=== PATIENT | female | born 1990 | race Caucasian/White ===

== ENCOUNTER 2023-04-06 10:04 | Outpatient (AMB) | payer MEDICAID, SELFPAY ==
--- NOTE | 2023-04-06 10:19 | MHC.OFFVIS ---
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 Pt states the left knee pain started about 3 years ago when she fell over a babygate and landed on her knee. Pt states she has had about 7 cortisone injections and gel injections all in 2021. Pt denies any previous surgeries on her knee. Pt states she did physical therapy for 12 weeks over the last 6 months which aggravated her pain. She has taken Tylenol and anti-inflammatory medicines which gave her minimal relief. Patient asked whether not she can have any medicine for her pain. Allergies No Known Allergies Allergy (Unverified 04/06/23 10:19) Medication List - Last Reconciled 04/06/23 by Tyrell Tesfaye MD clonazepam 1 mg PO BEDTIME PRN diclofenac sodium 1% 2 grams topical QID estradiol 1 mg PO DAILY hydroxyzine HCl 10 mg PO TID lacosamide (Vimpat) 200 mg PO BID levetiracetam (Keppra) 1,000 mg PO TID ropinirole 0.25 mg PO BEDTIME PFSH Surgical History History of appendectomy H/O: hysterectomy Social History Household Members: Spouse and Children Housing: Apartment Alcohol intake: never Patient Tobacco Use Status: Current everyday Tobacco user Cigarette Packs Per Day: 1 Use of substances other than those prescribed or required for medical reasons: Yes Substance Use Type: Marijuana Physical Exam Const Other: Well-nourished well-developed very friendly female awake alert and oriented x3 in no acute distress Extrem Other: Bilateral lower extremity examination shows good capillary refill, no skin lesions noted, normal sensation light touch Left knee examination shows a minimal effusion, minimal crepitus with range of motion, tenderness along her medial joint line, positive Sandra's test, no instability Results Reviewed Results Reviewed: X-rays of the patient's left knee show minimal joint space narrowing, no acute bony abnormalities Assessment & Plan Assessment & Plan (1) Left knee pain: Code(s): M25.562 - Pain in left knee Plan Ms. Shah presents with left knee pain and mechanical symptoms most likely due to a tear of her medial meniscus. Thus, I will send the patient for an MRI of her left knee for further evaluation. I will see her back once the MRI is completed to discuss the findings and treatment options. Patient did request pain medicine. I told her that I do not prescribe medicine for pain except for post surgery. The patient will follow-up as instructed. I spent 22 minutes in reviewing the patient's records and imaging studies, seeing the patient and documenting in the medical record. Orders: Orders XR knee LT 3V Today M25.562 - Pain in left knee MR knee LT wo con Today M25.562 - Pain in left knee Coding Level of Care Code New Pt Level 2 (01329) Diagnoses Left knee pain M25.562
== END 2023-04-06 10:48 | disposition home or self-care (01) ==
PROVIDERS: Visit Provider Orthopaedic Surgery
DX: M25.562 Pain in left knee (principal)
CPT/HCPCS: 99202

== ENCOUNTER 2023-04-06 11:54 | Outpatient (REF) | payer MEDICAID, SELFPAY ==
--- NOTE | ~2023-04-06 | XR_ITS ---
EXAMINATION: XR KNEE, LEFT CLINICAL INFORMATION: Pain in left knee COMPARISON: None available. TECHNIQUE: Four views of the left knee. FINDINGS: No fracture or joint effusion. Lateral patellar tilt is noted. Joint spaces are maintained. No abnormal soft tissue calcification. XR/XR knee LT 3V IMPRESSION: Lateral patellar tilt.
== END 2023-04-06 11:55 | disposition home or self-care (01) ==
LOC: HO.HOSX 11:54
PROVIDERS: Visit Provider Orthopaedic Surgery
DX: M25.562 Pain in left knee (principal)
CPT/HCPCS: 73562; 99202

== ENCOUNTER 2023-05-02 12:54 | Outpatient (AMB) | payer MEDICAID, SELFPAY ==
--- NOTE | 2023-05-02 12:58 | MHC.OFFVIS ---
Intake Intake Visit Reasons: OV- MRI Review Lt Knee pain Intake Note: Pt presents to the office today for a patient visit for left knee pain. Pt states the left knee pain started about 3 years ago when she fell over a babygate and landed on her knee. Pt states she has had about 7 cortisone injections and gel injections all in 2021. Pt denies any previous surgeries on her knee. Pt states she did physical therapy for 12 weeks over the last 6 months which aggravated her pain. She has taken Tylenol and anti-inflammatory medicines which gave her minimal relief. Patient asked whether not she can have any medicine for her pain. The patient thinks that she may have aggravated her knee while caring for her 4-year-old autistic son. She has not tried wearing a knee brace. She states that her knee will give out several times per day. She was seen at [facility] in the past. Allergies No Known Allergies Allergy (Unverified 04/06/23 10:19) Medication List - Last Reconciled 05/02/23 by Tyrell Tesfaye MD clonazepam 1 mg PO BEDTIME PRN diclofenac sodium 1% 2 grams topical QID estradiol 1 mg PO DAILY hydroxyzine HCl 10 mg PO TID lacosamide (Vimpat) 200 mg PO BID levetiracetam (Keppra) 1,000 mg PO TID ropinirole 0.25 mg PO BEDTIME PFSH Surgical History History of appendectomy H/O: hysterectomy Social History Household Members: Spouse and Children Housing: Apartment Alcohol intake: never Patient Tobacco Use Status: Current everyday Tobacco user Cigarette Packs Per Day: 1 Substance Use Type: Marijuana Physical Exam Extrem Other: Bilateral lower extremity examination shows good capillary refill, no skin lesions noted, normal sensation light touch Left knee examination shows a minimal effusion, no crepitus with range of motion, pain with range of motion, negative Arelis test, no instability Results Reviewed Results Reviewed: MRI which the patient brings with her on a disc from [facility] shows minimal degenerative changes, no meniscus tearing, no ligamentous injury Assessment & Plan Assessment & Plan (1) Left knee pain: Code(s): M25.562 - Pain in left knee Plan Ms. Shah presents with left knee pain and mechanical symptoms of unclear etiology. I do not see any significant abnormality on her MRI. Once again the patient's questions what type of pain medicine I can give her for her pain. I have referred her back to her primary care doctor office or a pain management clinic. Because of the patient's symptoms of instability I did have her fitted with a knee brace. I do find that the knee brace is a medical necessity to help prevent future falls. The patient has been seen at [facility] in the past. She does not wish to go back there. I did also recommend that the patient seek a 3rd opinion from the orthopedic department at [facility] because I do not have an explanation for her pain or mechanical symptoms. Patient will follow up with me on an as-needed basis. I spent 22 minutes in reviewing the patient's records and imaging studies, seeing the patient and documenting in the medical record. Coding Level of Care Code Est Pt Level 2 (94876) Diagnoses Left knee pain M25.562
== END 2023-05-02 13:12 | disposition home or self-care (01) ==
PROVIDERS: Visit Provider Orthopaedic Surgery
DX: M25.562 Pain in left knee (principal)
CPT/HCPCS: 99212

== ENCOUNTER → 2023-05-02 12:54 | Outpatient (BNVA) | payer MEDICAID, SELFPAY | PROVIDERS: Visit Provider Orthopaedic Surgery | DX: M25.562 Pain in left knee (principal) | CPT/HCPCS: 99212 ==

== ENCOUNTER 2025-05-26 08:11 | Emergency (ER) | payer MEDICAID, SELFPAY ==
--- NOTE | ~2025-05-26 | XR_ITS ---
EXAMINATION: XR CHEST CLINICAL INFORMATION: cough sob COMPARISON: None available. TECHNIQUE: 2 views of the chest were obtained. FINDINGS: Well inflated lungs. Question retrosternal bronchial wall thickening on the lateral view. No consolidation or pulmonary edema. No pleural effusion or pneumothorax. Cardiac and mediastinal contours are normal. Bony structures are normal. XR/XR chest 2V IMPRESSION: Well inflated lungs. Question retrosternal bronchial wall thickening. Electronically signed by: Carmenza Carvajal MD 05/26/2025 09:06 AM [facility]
[2025-05-26 08:21] VITALS: BP 134/88; PULSE 109; RESP 18; TEMP 36.8; O2SAT 97; BMI 13.5
--- NOTE | 2025-05-26 08:26 | ED_ITS ---
HPI - Nausea/Vomiting/Diarrhea General Chief complaint: General Medical Stated complaint: Stomach Pain Etc Time Seen by Provider: 05/26/25 08:24 Source: patient Mode of arrival: ambulatory Limitations: no limitations History of Present Illness ED Provider: Rosalie Singh PA-C HPI Narrative: Patria is a 5'2 female presenting with one week of significant gastrointestinal and respiratory symptoms. She began feeling ill on 11/13 and was seen at urgent care on 11/18 where she was diagnosed with influenza and given ondansetron. Over the past week she notes a 20 lb unintentional weight loss, severe stabbing abdominal pain, persistent watery diarrhea with metallic odor and flaky brown-red appearance (denies bright red blood, maroon stool, or melena), and prior episodes of vomiting (last ~5 days ago). She has been unable to tolerate oral intake; last attempted meal was 3 days ago and was not retained. Additional symptoms include dizziness, brain fog, malaise, shortness of breath with congestion and productive cough yielding brown-green sputum, and diaphoresis. She denies recent marijuana use, stating she has not smoked since the onset of dyspnea. No recent fevers were measured at home. Surgical history notable for appendectomy and total hysterectomy with bilateral oophorectomy (no possibility of ). She reports pain?not nausea?is the limiting symptom and therefore has not taken Zofran recently for this episode; she has Zofran at home but has not used it recently. Current medications include unspecified seizure medications and ondansetron PRN. Allergic reaction to sulfa drugs (diffuse rash). Declines Tamiflu and other drug use. Medications: - Seizure medications (unspecified, home regimen) - Ondansetron 4 mg PO PRN nausea/vomiting (has at home, not taken recently for current episode) Review of Systems: - Constitutional: weight loss (20 lb in 1 wk), malaise, diaphoresis. - HEENT: dizziness, ?head is busy and foggy.? - Respiratory: shortness of breath, congestion, productive cough with brown- green sputum. - Gastrointestinal: severe stabbing abdominal pain (pain score 6), nausea, vomiting (last 5 days ago), watery diarrhea with metallic odor and flaky brown- red appearance; unable to tolerate PO intake; denies hematochezia or melena. - Genitourinary: s/p total hysterectomy with BSO; no possibility of ; reports drinking and peeing. - Neurologic: brain fog, difficulty concentrating. Related Data Home Medications ?Medication ?Instructions ?Recorded ?Confirmed clonazepam 1 mg tablet 1 mg PO BEDTIME PRN 04/06/23 05/02/23 diclofenac sodium 1 % topical gel 2 g topical QID 02/1805/02/23 estradiol 1 mg tablet 1 mg PO DAILY 04/06/2305/02 hydroxyzine HCl 10 mg tablet 10 mg PO TID 04/06/2310/18 lacosamide 200 mg tablet (Vimpat) 200 mg PO BID 05/02/23 levetiracetam 1,000 mg tablet 1,000 mg PO TID 04/06/23 05/02/23 (Keppra) ropinirole 0.25 mg tablet 0.25 mg PO BEDTIME 04/06/23 05/02/23 Allergies Allergy/AdvReac Type Severity Reaction Status Date / Time Sulfa (Sulfonamide Allergy Hives Verified 05/26/25 08:26 Antibiotics) Review of Systems 2 Review of Systems: Yes all other systems are reviewed and are negative PMFSH Past Medical History Attestation statement: The following information was validated with the patient. Source: old records reviewed and nursing notes reviewed Surgical History History of appendectomy H/O: hysterectomy Social History Social History Household Members: Spouse and Children Housing: Apartment Alcohol intake: never Patient Tobacco Use Status: Current everyday Tobacco user Cigarette Packs Per Day: 1 Substance Use Type: Marijuana Advance Directives: No Advance Directives Information Provided: No Do you have a plan to hurt others: No Plan Physical Exam 2 Exam: Exam: General: Appears uncomfortable but in no acute distress, appears well-nourished body habitus is underweight, appears stated age. No septic or ill-appearing. Vitals were reviewed as normal, and PMH/Social and Surgical hx was reviewed, including allergies and current medications. Head: Normocephalic, no obvious trauma or skin lesions noted. Eyes: EOMI, no pallor ENMT: dry oral mucosa, no tonsillar edema or erythema Neck: trachea midline Cardiovascular: peripheral perfusion normal, Regular heart rate, mild tachycardia Respiratory: no respiratory distress, lungs CTAB Abdomen: non-distended, epigastric TTP without guarding, seen dry heaving Extremities: warm and moving without difficulty Psych: Cooperative but irritated with flat affect Neuro: Alert and oriented. Vital Signs: Vital Signs: Last Vital Signs Temp 98.2 F 05/26/25 08:21 Pulse 109 H 05/26/25 08:21 Resp 18 05/26/25 08:21 BP 134/88 05/26/25 08:21 Pulse Ox 97 05/26/25 08:21 O2 Del Method Room Air 05/26/25 08:21 BMI result Body Mass Index 13.5 Medical Decision Making Medical Decision Making MDM Narrative: Shakira presented with one week of severe gastrointestinal and respiratory symptoms following a recent influenza diagnosis, including significant weight loss, dehydration, and cachexia. Clinical assessment and physical exam confirmed volume depletion and cachexia. Laboratory studies and chest imaging were reviewed and showed no significant metabolic derangements or acute pulmonary findings. The differential diagnosis included viral gastroenteritis, medication effects, and other infectious or inflammatory etiologies. After discussing the results and management options, the patient declined IV fluids and was advised to pursue aggressive oral hydration at home, with close follow-up and return precautions should symptoms worsen or oral intake remain inadequate. Patient with one-week history of severe GI symptoms (vomiting, diarrhea, abdominal pain, weight loss) and respiratory complaints after recent influenza diagnosis; currently dehydrated and cachectic. Labs reviewed (no significant derangements) and chest imaging completed. Patient initially agreed to IV fluids but felt improved and elected to leave prior to infusion after extensive discussion of results, oral hydration, and return precautions. Problem #1: Dehydration / Cachexia Assessment: Clinical signs of volume depletion (dry mucosa, weight loss, minimal PO intake). Plan: - Initial plan for 1 L IV normal saline; patient elected to defer and was advised to aggressively hydrate orally at home. Citation: Guidelines recommend initial IV fluid resuscitation with isotonic crystalloids (preferably lactated Ringer?s or normal saline) in adults with moderate?severe dehydration from acute GI losses. - Discussed signs of worsening dehydration and need for return if unable to maintain intake. - Follow-up PRN if symptoms worsen or inability to maintain hydration. Problem #2: Severe GI symptoms (abdominal pain, vomiting, diarrhea, weight loss) Assessment: One-week duration following presumed influenza; differential includes viral gastroenteritis, medication effect, other infectious or inflammatory etiologies. Plan: - Completed labs (CBC, CMP, lipase, CPK, CRP, ESR, magnesium) ? reviewed with patient. - Return if abdominal pain worsens, persistent vomiting resumes, or bloody stools occur. - Consider abdominal CT if no improvement on follow-up. Citation: CT abdomen/pelvis is warranted in adults with acute severe diarrhea and weight loss when red-flag criteria are present, including severe pain, abnormal labs, or failure to improve; conservative management is appropriate only if these are absent. Problem #3: Respiratory symptoms (SOB, productive cough post-influenza) Assessment: Likely post-viral; chest X-ray without acute process. Plan: - Encouraged supportive care (hydration, rest). Citation: Routine chest radiography is not indicated in immunocompetent adults with normal vital signs and lung exam, as per ACR and CHEST guidelines; supportive care is recommended unless clinical findings change. Citation: Bronchial wall thickening on chest X-ray without consolidation supports a viral etiology; guidelines recommend withholding antibiotics and providing supportive care for acute bronchitis in immunocompetent adults. - Return if dyspnea worsens, fever develops, or bloody sputum occurs. Disposition: Patient discussed oral hydration strategies and comprehensive return precautions; declined IV fluids after feeling improved and left clinic in stable condition accompanied by significant other. No work note requested. [facility] pharmacy confirmed. Follow-Up: Patient advised to return or seek higher level of care for any worsening symptoms, inability to hydrate, new fever, or concerns per provided precautions. Differential Diagnosis Differential Diagnoses: The differential diagnosis associated with the presentation includes see [facility] Admission/Observation Consideration of admission/observation: Escalation of care including admission/observation considered Lab Data [facility] Lab Attestation statement: I reviewed the patient's lab results. - CBC: WNL, no anemia, no leukocytosis. - CMP: No electrolyte imbalance or metabolic dysfunction; AST 42 (slightly ?), ALT normal, alk phos 123. - CK 177 (not supportive of rhabdomyolysis). - CRP, ESR, lipase, magnesium within normal limits. 05/26/25 09:05 05/26/25 09:05 Labs: Lab Results 05/26/25 Range/Units 09:05 WBC 7.5 (4.8-10.8) X10*3/uL RBC 4.76 (4.20-5.50) X10*6/uL Hgb 14.7 (12.0-16.0) g/dl Hct 42.2 (37.0-47.0) % MCV 88.7 (80.0-98.0) fL MCH 30.9 (27.0-33.0) pg MCHC 34.8 (31.0-35.0) g/dl RDW 13.0 (11.0-16.0) % Plt Count 342 (160-400) X10*3/uL MPV 8.7 L (9.4-12.3) fL Immature Gran % (Auto) 0.4 (0.0-0.4) % Neut % (Auto) 64.2 (45-73) % Lymph % (Auto) 23.8 (20-40) % [place] % (Auto) 11.2 H (2-11) % Eos % (Auto) 0.3 (0-4) % Baso % (Auto) 0.1 (0-2) % Lymph # (Auto) 1.8 (1.2-4.9) X10*3/uL [place] # (Auto) 0.8 (0.1-1.2) X10*3/uL Eos # (Auto) 0.0 (0.0-0.4) X10*3/uL Baso # (Auto) 0.0 (0.0-0.2) X10*3/uL Abs Immat Gran (auto) 0.03 (0.00-0.03) X10*3/uL Absolute Neuts (auto) 4.8 (2.0-8.3) x10*3/uL Absolute Nucleated RBC 0.000 (0.0-0.012) X10*3/uL Nucleated RBC % (auto) 0.0 (0.0-0.2) /100WBC ESR 33 H (1-20) MM/HR Sodium 138 (135-145) mmol/L Potassium 3.5 (3.3-5.1) mmol/L Chloride 103 (96-108) mmol/L Carbon Dioxide 25 (22-29) mmol/L Anion Gap 14 (12-20) BUN 5 L (9-16) mg/dL Creatinine 0.56 (0.5-1.4) mg/dL Estim Creat Clear Calc 74.6 Estimated GFR > 60 Random Glucose 112 (60-115) mg/dL Calcium 9.5 (8.4-10.2) mg/dL Magnesium 2.2 (1.6-2.6) mg/dL Total Bilirubin 0.6 (0.0-1.0) mg/dL AST 42 H (5-31) U/L ALT 31 (0-31) U/L Alkaline Phosphatase 123 H (39-117) U/L Total Creatine Kinase 177 H (26-140) U/L C-React Prot High Sens >20.0 H mg/L Total Protein 7.8 (6.5-8.0) g/dL Albumin 4.6 (3.5-5.0) g/dL Lipase 16 (8-78) U/L Independent Interpretation I performed an independent interpretation of an: Plain X-Ray Interpretation: no PNA Radiology Impression Discussion of test interpretation with radiology: I have reviewed the radiologist's reading. Tests considered The following testing was considered but not selected: would have considered CT abd/pelvis if patient was willing to stay in ED Prescription Management I considered prescription management with: Other pt declined IVFs and requested to leave prior to going to room Chronic Conditions Patient?s care impacted by: Other Social Determinants Patient?s care significantly limited by Social Determinants of Health including: Problems related to primary support group and Other Social Determinant of Health Discharge Plan Discharge Clinical Impression: Gastroenteritis, Acute dehydration Patient Disposition: Home, Self-Care Instructions: Dehydration (DC), Gastroenteritis (DC) Additional Instructions: If you start to have moderate to severe signs of dehydration you need to go to the ED for IV fluid replacement. Signs include: decreased to no urinary output, confusion, moderate to severe muscle cramping in extremities, headaches, and lethargy. Drink plenty of fluids. Choose fluids containing water, salt, and sugar, such as diluted fruit juice, soft drinks and broth. You may try mixing the following for oral rehydration: Add 0.5 teaspoon of salt, 0.5 teaspoon of baking soda, and 4 tablespoons of sugar to 1 liter of water. The electrolyte concentrations of fluids used for sweat replacement (eg, Gatorade) are not equivalent. If you have watery diarrhea, eat starchy foods, such as potatoes, noodles, rice, wheat, and oatmeal. Other good choices are saltine crackers, bananas, soup, and boiled vegetables. If you aren't hungry, you may need a liquid diet at first. After your diarrhea clears up, you may have temporary difficulty with digesting milk and milk-based products. Prescriptions: No Action levetiracetam [Keppra] 1,000 mg tablet 1,000 mg PO TID lacosamide [Vimpat] 200 mg tablet 200 mg PO BID clonazepam 1 mg tablet 1 mg PO BEDTIME PRN estradiol 1 mg tablet 1 mg PO DAILY ropinirole 0.25 mg tablet 0.25 mg PO BEDTIME hydroxyzine HCl 10 mg tablet 10 mg PO TID diclofenac sodium 1 % gel 2 g topical QID Discharge Date/Time: 05/26/25 10:48 Print Language: Gibralt[place]
[2025-05-26 09:18] LABS: MANUAL DIFF FLAG NO
[2025-05-26 09:20] LABS: Hematocrit 42.2 % (37.0-47.0); Hemoglobin 14.7 g/dl (12.0-16.0); Imm Gran Abs Auto 0.03 X10*3/uL (0.00-0.03); Imm Gran Pct Auto 0.4 % (0.0-0.4); Lymphocytes Absolute Auto 1.8 X10*3/uL (1.2-4.9); Mean Corpuscular HGB Conc 34.8 g/dl (31.0-35.0); Mean Corpuscular Hemoglobin 30.9 pg (27.0-33.0); Mean Corpuscular Volume 88.7 fL (80.0-98.0); NRBC Abs Auto 0.000 X10*3/uL (0.0-0.012); NRBC Pct Auto 0.0 /100WBC (0.0-0.2); Platelet Count 342 X10*3/uL (160-400); Red Blood Count 4.76 X10*6/uL (4.20-5.50); White Blood Count 7.5 X10*3/uL (4.8-10.8)
[2025-05-26 09:47] LABS: Alanine Aminotransferase 31 U/L (0-31); Albumin Level 4.6 g/dL (3.5-5.0); Alkaline Phosphatase 123 U/L (39-117); Anion Gap 14 (12-20); Aspartate Amino Transferase 42 U/L (5-31); Blood Urea Nitrogen 5 mg/dL (9-16); Calcium 9.5 mg/dL (8.4-10.2); Carbon Dioxide 25 mmol/L (22-29); Chloride 103 mmol/L (96-108); Creatinine Clr Calc Pharmacy 74.6; Estimated Glomerular Filt Rate > 60; Lipase 16 U/L (8-78); Magnesium 2.2 mg/dL (1.6-2.6); Potassium 3.5 mmol/L (3.3-5.1); Sodium 138 mmol/L (135-145); Total Protein 7.8 g/dL (6.5-8.0)
--- NOTE | 2025-05-26 10:46 | PC.NURSE ---
Patient had left hospital prior to being seen by this nurse. Provider had already spoken to the patient prior to her leaving [facility] , and provider also called the phone to give her discharge instructions. Discharged home in the computer. IVF not given due to patient leaving
--- OUTSIDE RECORDS SUMMARY | 2025-05-26 11:42 | XMS_ITS | Encounter Summary ---
Author Organization [facility] Address [address] [facility] [address] [place] [address] Phone Care Team Providers Care Hereditary Cancer Program Coordinator Name Role Phone Alessio Jeffery MD Unavailable Yoanna Varela MD Unavailable [phone] Nahun Oliver MD Unavailable [phone] Yumiko Shearer MD Unavailable [phone] Claudia Werner MD Primary Care Provider [phone] Hamida Vickers [facility] Primary Care Prov ider Reason for Referral * MRI/CAT Scan - Closed Specialty Diagnoses / Procedures Referred By Contac t Referred To Contact Radiology Diagnoses Chronic pain of left knee Procedures MRI Knee (Left) Monica Elizabeth PA-C Phone: tel: fax: [email or web address] Referral ID Status Reason Start Date Expiration Date Visits Re quested Visits Authorized [id number] Closed 04/07/2023 1 1 Encounter Details Date Type Department Care Team (Latest Contact Info) Description 04/07/2023 Transcribe Orders Virtual Department [address] [place] [address] Monica Elizabeth PA-C [address] [place] [phone] [email or web address] Chronic pain of left knee (Primary Dx) Social History Tobacco Use Types Packs/Day Years Used Date Smoking Tobacco: Every Day Cigarettes 0.5 5 Smokeless Tobacco: Never Comments:1/2 ppd Alcohol Use Standard Drinks/Week Comments No 0 (1 standard drink = 0.6 oz pur e alcohol) sober 2014 Education Answer Date Recorded Are you interested in more education? Not on puneet e 09/23/2022 Are you concerned about learning? Not on file 09/23/2022 No 09/23/2022 No 09/23/2022 Digital Access Answer Date Recorded No 10/18/2022 No 10/18/2022 Reliable internet access at home? Not on file 10/18/2022 Device with a working camera? Not on file Intimate Partner Violence Answer Date R ecorded Are you denied basic needs s uch as food, clothing, or medical care? No 10/04/2022 In the past 12 months have y ou been in a relationship with a person who hurts, threatens, or tries to control you? No 10/04/2022 Are you denied basic needs s uch as food, clothing, or medical care? No 10/04/2022 In the past 12 months have y ou been in a relationship with a person who hurts, threatens, or tries to control you? 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 Not on file Not on file Not on file documented as of this encounter Plan of Treatment Upcoming Encounters Date Type Department Care Team (Late st Contact Info) Description 06/27/2025 10:00 AM EST Office Visit [facility] Obstetrics and Gynecology Clinic [place] [address] Yumiko Shearer MD [address] [place] [address], [address] [place] [address] documented as of this encounter Results * MRI KNEE WITHOUT CONTRAST (LEFT) (04/16/2023 12:55 PM EST) Anatomical Region Laterality Modality Knee Left Magnetic Resonan ce 04/19/2023 5:16 PM EST Impressions 04/20/2023 12:55 AM EST No meniscal tear, significant cartilage defects, or ligamentous injury. Narrative 04/20/2023 12:55 AM EST MRI KNEE WITHOUT CONTRAST (LEFT) REQUESTED INDICATION: Outside Radiology Order; CHRONIC LEFT KNEE PAIN TECHNIQUE: MRI KNEE WITHOUT CONTRAST (LEFT) COMPARISON: None FINDINGS: MEDIAL COMPARTMENT: No meniscal tear, cartilage defect, or subchondral bone marrow edema. LATERAL COMPARTMENT: No meniscal tear, cartilage defect, or subchondral bone marrow edema. PATELLOFEMORAL COMPARTMENT: No cartilage defect or subchondral bone marrow edema. TENDONS: Quadriceps, patellar and popliteus tendons intact. LIGAMENTS: Intact cruciate and collateral ligaments. BONE: No fracture, osteonecrosis, or focal lesion. JOINT: No joint effusion, synovitis, or Dockery's cyst. Procedure Note Skye Frazier MD - 04/20/2023 MRI KNEE WITHOUT CONTRAST (LEFT) REQUESTED INDICATION: Outside Radiology Order; CHRONIC LEFT KNEE PAIN TECHNIQUE: MRI KNEE WITHOUT CONTRAST (LEFT) COMPARISON: None FINDINGS: MEDIAL COMPARTMENT: No meniscal tear, cartilage defect, or subchondralbone marrow edema. LATERAL COMPARTMENT: No meniscal tear, cartilage defect, or subchondralbone marrow edema. PATELLOFEMORAL COMPARTMENT: No cartilage defect or subchondral bone marrowedema. TENDONS: Quadriceps, patellar and popliteus tendons intact. LIGAMENTS: Intact cruciate and collateral ligaments. BONE: No fracture, osteonecrosis, or focal lesion. JOINT: No joint effusion, synovitis, or Dockery's cyst. IMPRESSION: No meniscal tear, significant cartilage defects, or ligamentous injury. Monica Prema Glenn PA-C IMG MR EXTREMITY Final Result documented in this encounter Visit Diagnoses Diagnosis Chronic pain of left knee- Primary Chronic pain of left knee documented in this encounter Additional Health Concerns Infection Onset Date Last Indicated Resolved Time CoV-Risk 07/08/2023 07/08/2023 07/19/2023 1:23 AM EST CoV-Risk 08/29/2023 08/29/2023 09/09/2023 1:22 AM EDT CoV-Risk 10/11/2023 10/11/2023 10/22/2023 1:22 AM EDT Resp-Risk 05/20/2025 05/20/2025 05/20/2025 10:0 8 AM EST Influenza A 05/20/2025 05/20/2025 documented as of this encounter Care Teams Hereditary Cancer Program Coordinator Relationship Specialty Start Date End Date Claudia Werner MD [address] [place] [address] PCP - General Internal Medicine 06/19/22 09/01/24 Hamida Vickers CNP [address] [place] [address] PCP - General Nurse Practitioner 09/02/24 Alessio Jeffery MD [address] [place] [address] Historical LMR Provider 03/15/17 Yoanna Varela MD [address] [place] [address] Historical LMR Provider 03/15/17 Nahun Oliver MD [address] [place] [address] Historical LMR Provider 03/15/17 Yumiko Shearer MD [address] [place] [address], [facility] [address] [place] [address] [email or web address] Historical LMR Provider 03/15/17 documented as of this encounter Additional Source Comments The information contained in this document represents components of the legal health record. It is not the complete legal health record.[facility]
--- OUTSIDE RECORDS SUMMARY | 2025-05-26 11:42 | XMS_ITS | Encounter Summary ---
Author Organization [facility] Address [address] [place] [address] Phone Care Team Providers Care Senior Electrical Project Manager Name Role Phone Alessio Jeffery MD Unavailable Yoanna Varela MD Unavailable [phone] Nahun Oliver MD Unavailable [phone] Yumiko Shearer MD Unavailable [phone] Claudia Werner MD Primary Care Provider [phone] Hamida Vickers [facility] Primary Care Prov ider Encounter Details Date Type Department Care Team (Late st Contact Info) Description 08/15/2022 Procedure Pass [facility], Ct Scan - [address] [address] Social History Tobacco Use Types Packs/Day Years Used Date Smoking Tobacco: Every Day Cigarettes 0.5 5 Smokeless Tobacco: Never Comments:1/2 ppd Alcohol Use Standard Drinks/Week Comments No 0 (1 standard drink = 0.6 oz pur e alcohol) sober 2014 Comments No Sex and Gender Information Value [...] Description 06/27/2025 10:00 AM EST Office Visit [facility]st[facility]s [facility] Gyne[facility] Clinic [address] [place] [address] [place] [address] Yumiko Shearer MD [address] [place] [address], [address] [address] [email or web address] documented as of this encounter Visit Diagnoses Not on filedocumented in this encounter Additional Health Concerns Infection Onset Date Last Indicated Resolved Time CoV-Risk 07/08/2023 07/08/2023 07/19/2023 1:23 AM EST CoV-Risk 08/29/2023 08/29/2023 09/09/2023 1:22 AM EDT CoV-Risk 10/11/2023 10/11/2023 10/22/2023 1:22 AM EDT Resp-Risk 05/20/2025 05/20/2025 05/20/2025 10:0 8 AM EST Influenza A 05/20/2025 05/20/2025 documented as of this encounter Care Teams Senior Electrical Project Manager Relationship Specialty Start Date End Date Claudia Werner MD [address] [place] [address] [email or web address] PCP - General Internal Medicine 06/19/22 09/01/24 Hamida Vickers CNP [address] [place] [address] PCP - General Nurse Practitioner 09/02/24 Alessio Jeffery MD [address] [place] [address] [email or web address] Historical LMR Provider 03/15/17 Yoanna Varela MD [address] [place] [address], [address] [address] Historical LMR Provider 03/15/17 Nahun Oliver MD [address] [place] [address] Historical LMR Provider 03/15/17 Yumiko Shaerer MD [address] [place] [address] [email or web address] Historical LMR Provider 03/15/17 documented as of this encounter Additional Source Comments The information contained in this document represents components of the legal health record. It is not the complete legal health record.[facility]
--- OUTSIDE RECORDS SUMMARY | 2025-05-26 11:42 | XMS_ITS | Encounter Summary ---
Author Organization [facility] Address [address] [facility] [place] [address] Phone Care Team Providers Care Operations Representative Name Role Phone Alessio Jeffery MD Unavailable Yoanna Varela MD Unavailable [phone] Nahun Oliver MD Unavailable [phone] Yumiko Shearer MD Unavailable [phone] Claudia Werner MD Primary Care Provider [phone] Hamida Vickers [facility] Primary Care Prov ider Encounter Details Date Type Department Care Team (Late st Contact Info) Description 09/15/2022 Procedure Pass [facility], Ct Scan - [address] [address] Social History Tobacco Use Types Packs/Day Years [...] Description 06/27/2025 10:00 AM EST Office Visit [facility] Obstetrics and Gynecology Clinic [address] [place] [address] [place] [address] Yumiko Shearer MD [address] [place] [address], [address] [address] [email or web address] documented as of this encounter Visit Diagnoses Not on filedocumented in this encounter Additional Health Concerns Infection Onset Date Last Indicated Resolved Time CoV-Risk 07/08/2023 07/08/2023 07/19/2023 1:23 AM EST CoV-Risk 08/29/2023 08/29/2023 09/09/2023 1:22 AM EDT CoV-Risk 10/11/2023 10/11/2023 10/22/2023 1:22 AM EDT Resp-Risk 05/20/2025 05/20/2025 05/20/2025 10:0 8 AM EST Influenza A 05/20/2025 05/20/2025 documented as of this encounter Care Teams Operations Representative Relationship Specialty Start Date End Date Claudia Werner MD [address] [place] [address] [email or web address] PCP - General Internal Medicine 06/19/22 09/01/24 Hamida Vickers CNP [address] [place] [address] PCP - General Nurse Practitioner 09/02/24 Alessio Jeffery MD [address] [place] [address] [email or web address] Historical LMR Provider 03/15/17 Yoanna Varela MD [address] [place] [address], [address] [address] Historical LMR Provider 03/15/17 Nahun Oliver MD [address] [place] [address] Historical LMR Provider 03/15/17 Yumiko Shearer MD [address] [place] [address] [email or web address] Historical LMR Provider 03/15/17 documented as of this encounter Additional Source Comments The information contained in this document represents components of the legal health record. It is not the complete legal health record.[facility]
--- OUTSIDE RECORDS SUMMARY | 2025-05-26 11:42 | XMS_ITS | Encounter Summary ---
Author Organization [facility] Address [address] [place] [address] Phone Care Team Providers Care Digital Cartographic Technician Name Role Phone Alessio Jeffery MD Unavailable Yoanna Varela MD Unavailable [phone] Nahun Oliver MD Unavailable [phone] Yumiko Shearer MD Unavailable [phone] Claudia Werner MD Primary Care Provider [phone] Hamida Vickers [facility] Primary Care Prov ider Encounter Details Date Type Department Care Team (Late st Contact Info) Description 04/07/2023 Procedure Pass [address] [place] [address] Social History Tobacco Use Types Packs/Day Years [...] on file documented as of this encounter Last Filed Vital Signs Vital Sign Reading Time Taken Comments Blood Pressure - - Pulse - - Temperature - - Respiratory Rate - - Oxygen Saturation - - Inhaled Oxygen Concentration - - Weight 41.7 kg (92 lb) 04/10/2023 3:02 PM EST Height 152.4 cm (5') 04/10/2023 3:02 PM EST Body Mass Index 17.97 04/10/2023 3:02 PM EST documented in this encounter Plan of Treatment Upcoming Encounters Date Type Department Care Team (Late st Contact Info) Description 06/27/2025 10:00 AM EST Office Visit [facility] Obstetrics and Gynecology Clinic [address] [place] [address] [place] [address] Yumiko Shearer MD [address] [place] [address], [address] [place] [address] [email or web address] documented as of this encounter Visit Diagnoses Not on filedocumented in this encounter Additional Health Concerns Infection Onset Date Last Indicated Resolved Time CoV-Risk 07/08/2023 07/08/2023 07/19/2023 1:23 AM EST CoV-Risk 08/29/2023 08/29/2023 09/09/2023 1:22 AM EDT CoV-Risk 10/11/2023 10/11/2023 10/22/2023 1:22 AM EDT Resp-Risk 05/20/2025 05/20/2025 05/20/2025 10:0 8 AM EST Influenza A 05/20/2025 05/20/2025 documented as of this encounter Care Teams Digital Cartographic Technician Relationship Specialty Start Date End Date Claudia Werner MD [address] [place] [address] PCP - General Internal Medicine 06/19/22 09/01/24 Hamida Vickers CNP [address] [place] [address] PCP - General Nurse Practitioner 09/02/24 Alessio Jeffery MD [address] [place] [address] Historical LMR Provider 03/15/17 Yoanna Varela MD [address] [place] [address] Historical LMR Provider 03/15/17 Nahun Oliver MD [address] [place] [address] Historical LMR Provider 03/15/17 Yumiko Shearer MD [address] [place] [address] Historical LMR Provider 03/15/17 documented as of this encounter Additional Source Comments The information contained in this document represents components of the legal health record. It is not the complete legal health record.[facility]
--- OUTSIDE RECORDS SUMMARY | 2025-05-26 11:42 | XMS_ITS | Encounter Summary ---
Author Organization [facility] Address [address] [facility] [address] [place] [address] Phone Care Team Providers Care Battery Builder Name Role Phone Alessio Jeffery MD Unavailable Yoanna Varela MD Unavailable [phone] Nahun Oliver MD Unavailable [phone] Yumiko Shearer MD Unavailable [phone] Claudia Werner MD Primary Care Provider [phone] Hamida Vickers [facility] Primary Care Prov ider Encounter Details Date Type Department Care Team (Late st Contact Info) Description 08/12/2022 Procedure Pass [place] Admitting Dept - [facility] Department [address] [place] [address] Social History Tobacco Use Types Packs/Day Years [...] Description 06/27/2025 10:00 AM EST Office Visit [facility] Obstetrics and Gynecology Clinic [address] [place] [address] [place] [address] Yumiko Shearer MD [address] [place] [address], [address] [address] [email or web address] documented as of this encounter Visit Diagnoses Not on filedocumented in this encounter Additional Health Concerns Infection Onset Date Last Indicated Resolved Time CoV-Risk 07/08/2023 07/08/2023 07/19/2023 1:23 AM EST CoV-Risk 08/29/2023 08/29/2023 09/09/2023 1:22 AM EDT CoV-Risk 10/11/2023 10/11/2023 10/22/2023 1:22 AM EDT Resp-Risk 05/20/2025 05/20/2025 05/20/2025 10:0 8 AM EST Influenza A 05/20/2025 05/20/2025 documented as of this encounter Care Teams Battery Builder Relationship Specialty Start Date End Date Claudia Werner MD [address] [place] [address] [email or web address] PCP - General Internal Medicine 06/19/22 09/01/24 Hamida Vickers CNP [address] [place] [address] PCP - General Nurse Practitioner 09/02/24 Alessio Jeffery MD [address] [place] [address] [email or web address] Historical LMR Provider 03/15/17 Yoanna Varela MD [address] [place] [address], [address] [address] Historical LMR Provider 03/15/17 Nahun Oliver MD [address] [place] [address] Historical LMR Provider 03/15/17 Yumiko Shearer MD [address] [place] [address] [email or web address] Historical LMR Provider 03/15/17 documented as of this encounter Additional Source Comments The information contained in this document represents components of the legal health record. It is not the complete legal health record.[facility]
--- OUTSIDE RECORDS SUMMARY | 2025-05-26 11:42 | XMS_ITS | Encounter Summary ---
Author Organization [employer] Address [address] [facility] 7t [place] [address] Care Team Providers Care Insurance Claim Auditor Name Role Phone Rylie Busby Unavailable [phone] Claudia Werner MD Primary Care Provider [phone] Monica Elizabeth Primary Care Provider [phone] Jacey Jimenez Unavailable Unavailable Sylvia Robbins DO Primary Care Provider Hamida Vickers Primary Care Provider [phone] Antionette Khanna Unavailable Antionette Khanna Unavailable Encounter Details Date Type Department Care Team (Latest Contact Info) Description 01/30/2020 Abstract [facility] CONVERSIONS Dental, Provider, DDS Social History Tobacco Use Types Packs/Day Years Used Date Smoking Tobacco: Never Assessed Comments Unknown Sex and Gender Information Value Date Recorded Sex Assigned at Female 05/04/2022 2:50 PM EST Legal Sex Female 5:36 PM EDT Gender Identity Female 05/04/2022 2:50 PM EST Sexual Orientation Straight 06/06/2022 10 :28 AM EST documented as of this encounter Plan of Treatment Not on file documented as of this encounter Visit Diagnoses Not on filedocumented in this encounter Care Teams Insurance Claim Auditor Relationship Specialty Start Date End Date Claudia Werner MD [address] [place] [address] PCP - General Internal Medicine 06/17/22 03/21/23 Monica Elizabeth PA [address] [place] [address] PCP - General Family Medicine 03/22/23 05/18/23 Sylvia Robbins DO [address] [place] [address] PCP - General Family Medicine 05/19/23 09/26/23 Hamida Vickers FNP [address] [place] [address] PCP - General Family Medicine 09/27/23 Rylie Busby LICSW [address] [place] [address] Train Director Behavioral Health 05/05/22 Jacey Jimenez Community Health Worker 05/19/23 10/31/24 Antionette Khanna 12/30/24 12/31/24 Antionette Khanna 04/04/25 documented as of this encounter
--- OUTSIDE RECORDS SUMMARY | 2025-05-26 11:42 | XMS_ITS | Encounter Summary ---
Author Organization [facility] Address [address] [facility] [address] [place] [address] Phone Care Team Providers Care Patient Safety Attendant Name Role Phone Char Guerrero CNM Unavailable Alessio Jeffery MD Unavailable Imelda Barcenas NP Unavailable [phone] Yoanna Varela MD Unavailable Nahun Oliver MD Unavailable [phone] Yumiko Shearer MD Unavailable Daisy Magaña MD Unavailable [phone] Claudia Werner MD Primary Care Provider Bessie Stearns BUSHER HELPER Primary Care Provide r Claudia Werner MD Primary Care Provider Hamida Vickers [facility] Primary Care Prov ider Encounter Details Date Type Department Care Team (Late st Contact Info) Description 12/07/2018 Transcribe Orders [facility] [address] [place] [address] Sylvia Dockery MD [address] [place] [address] Social History Tobacco Use Types Packs/Day Years Used Date Smoking Tobacco: Every Day Cigarettes Smokeless Tobacco: Never Alcohol Use Standard Drinks/Week Comments No 0 (1 standard drink = 0.6 oz pur e alcohol) Comments Yes Sex and Gender Information Value Date Recorded [...] Description 06/27/2025 10:00 AM EST Office Visit [facility] Obstetrics and Gynecology Clinic [address] [place] [address] [place] [address] Yumiko Shearer MD [address] [place] [address], [facility] [address] [place] [address] [email or web address] documented as of this encounter Visit Diagnoses Not on filedocumented in this encounter Additional Health Concerns Infection Onset Date Last Indicated Resolved Time CoV-Risk 07/08/2023 07/08/2023 07/19/2023 1:23 AM EST CoV-Risk 08/29/2023 08/29/2023 09/09/2023 1:22 AM EDT CoV-Risk 10/11/2023 10/11/2023 10/22/2023 1:22 AM EDT Resp-Risk 05/20/2025 05/20/2025 05/20/2025 10:0 8 AM EST Influenza A 05/20/2025 05/20/2025 documented as of this encounter Care Teams Patient Safety Attendant Relationship Specialty Start Date End Date Claudia Werner MD [address] [place] [address] PCP - General Internal Medicine 09/30/18 10/01/20 Bessie Stearsn NP [address] [place] [address] PCP - General 10/02/20 06/18/22 Claudia Werner MD [address] [place] [address] PCP - General Internal Medicine 06/19/22 09/01/24 Hamida Vickers, METAL SPONGE MAKING MACHINE OPERATOR [address] [place] [address] PCP - General Nurse Practitioner 09/02/24 Char Guerrero CNM [address] [place] [address] Historical LMR Provider 03/15/17 2 Alessio Jeffery MD [address] [place] [address] [email or web address] Historical LMR Provider 03/15/17 Imelda Barcenas NP [address] [place] [address] [email or web address] Historical LMR Provider 03/15/17 06/05/21 Yoanna Varela MD [address] [place] [address] [email or web address] Historical LMR Provider 03/15/17 Nahun Oliver MD [address] [place] [address] [email or web address] Historical LMR Provider 03/15/17 Yumiko Shearer MD [address] [place] [address] [email or web address] Historical LMR Provider 03/15/17 Daisy Magaña MD [address] [place] [phone] Historical LMR Provider 03/15/17 2 documented as of this encounter Additional Source Comments The information contained in this document represents components of the legal health record. It is not the complete legal health record.[facility]
--- OUTSIDE RECORDS SUMMARY | 2025-05-26 11:43 | XMS_ITS | Clinical Summary ---
Author Organization [employer] Address [address] [facility] [address] [place] [address] Care Team Providers Care Medical Lab Technician Name Role Phone Rylie Busby Unavailable [phone] Hamida Vickers Primary Care Provider [phone] Antionette Khanna Unavailable Allergies Active Allergy Reactions Criticality Noted Date Comments Other 11/12/2022 [place] Pineapple 10/20/2022 Fuzzy tongue Sulfa Antibiotics Rash Low 03/24/2014 Medications * This document contains information received from the source organization and may not represent a complete record from that organization. lacosamide (Vimpat) 200 mg tablet tablet TAKE 1 TABLET BY MOUTH TWICE DAILY MASSPAT CHECKED 01/03/20 22 Active levETIRAcetam (Keppra) 1000 MG tablet Take 1,000 mg by mouth in the morning and 1,000 mg at noon and 1,000 mg in the evening. Active albuterol 108 (90 Base) MCG/ACT inhalerIndicati ons:Mild intermittent asthma without complication Inhale 2 puffs every 6 (six) hours if needed for wheezing or shortness of breath. 18 g 1 11/26/19 23 Active escitalopram (Lexapro) 5 MG tablet Take 1 tablet by mouth Once per day. 02/29/20 25 Active traZODone (Desyrel) 50 MG tablet TAKE 1-2 TABLETS BY MOUTH AT BEDTIME NEEDED FOR INSOMNIA 02/29/20 25 Active clonazePAM (KlonoPIN) 2 MG tabletIndicatio ns:Claustrophob ia Take 1 tablet (2 mg) by mouth 1 (one) time for 1 dose. 30 minutes prior to the procedure 1 tablet 04/08/20 25 Active capsaicin (Capzasin-HP) 0.1 % cream Apply topically 4 times daily. 56.6 g 04/21/20 25 Active cyclobenzaprine (Flexeril) 5 MG tabletIndicatio ns:Acute midline thoracic back pain 1-2 tablets at bedtime as needed for muscle spasms/14/da ys 24 tablet 05/13/20 25 Active Nutritional Supplements (Boost Original) liquidIndicatio ns:Failure to thrive in adult,Protein-c alorie malnutrition, unspecified severity (CMS/HCC) Take 237 mL by mouth Once per day. In addition to 3 full meals 7110 mL 2 04/11/20 25 025 predniSONE (Deltasone) 20 MG tablet Take 2 tablets (40 mg) by mouth Once per day for 5 days. 10 tablet 04/21/20 25 025 cyclobenzaprine (Flexeril) 5 MG tabletIndicatio ns:Acute midline thoracic back pain 1-2 tablets at bedtime as needed for muscle spasms/14/da ys 12 tablet 04/21/20 25 025 Discontinued(Re order (will not trigger notification to Pharmacy)) Active Problems Problem Noted Date Diagnosed Date Bleeding hemorrhoids 09/27/2023 Overview (10/09/2023): Severe rectal pain, unable to tolerate physical exam today. Concern for thrombosed hemorrhoid. Discussed options - will refer to ER for urgent management. Therapeutic drug monitoring 06/14/2023 Assessment & Plan (06/15/2023 8:25 AM EST): Pt wanted to come in today to get another Utox; her last Utox revealed opioids, which she was not prescribed at the time. She is requesting a refill of her Klonipin; nursing called her yesterday to let her know about the Utox (which she has already been told about) as well as that she has breeched the CSA. The pt was a no show at her appt for her new PCP last week; she states she did not remember the appt. The pt was given a urine cup and the urine in the cup was very dilute, there was no yellow or discoloration noted at all. The cup was warm but it was very clear and no color noted; the cup was almost full all the way. We performed a urine dip and the SG was 1.000. There were no other things found in the urine as well. We ordered a UA as well. We also performed an oral swab for back up, due to ? Suspicion of urine. She was very upset about this but did do it. The pt was very defensive about having to come in today. I discussed with her that she did not need to come in but we are hesitant to prescribe the controlled substance due to the last Utox coming up positive for opioids, which were not prescribed to her. She stated that she knew it would come up positive because she was taking Vicodin. I discussed with her that we did not prescribe that for her and that she was not taking it for as it was prescribed. I discussed with her at the last visit when she had the failed Utox that she should not be taking medications prescribed for something else, colton narcotics, for another condition. It was not appropriate for the knee pain that she was experiencing. She also states that she ran out of the Klonipin last week; she was not due for a refill until yesterday, she would not say why she ran out so early. I discussed with her at this point we will not be prescribing the Klonipin until the drug screens come back, which would be at least 3-5 business days. I discussed with her the reasons why, but she continued to not want to listen to them and continued to try to argue with me. I discussed with her that I would provide her with comfort meds and increase her Hydroxyzine if that would help with her anxiety. She states that she thinks it would make her drowsy and sleepy and she cannot be like that. I told her that the Klonipin would make her more sleepy but she did not want to listen. She also accused us of cancelling her Vimpat; she states she went to pick it up at the pharmacy yesterday and the pharmacist told her that the doctor had called and cancelled the prescription. Her neurologist prescribes that medication and I told her that we would never cancel a prescription that we do not prescribe. We have never called/talked to her Neurologist but she states she thinks we did that due to the Utox. I discussed with her that she would need to make an est care appt with her PCP again early next week and they can go over the results of the tox screens and decide from there what the next step is. Follow up with PCP next week. Encounter to establish care 03/15/2023 Assessment & Plan (03/15/2023 12:45 PM EDT): Shakira was seen today to establish care with myself. She states she has been doing ok; she has been having a lot of issues with her left knee. She states she has been followed by [facility] and has had multiple Cortisone injections as well as gel injections with no relief. She was last seen at [facility] just over 1.5y ago and they noted that she has deterioration of the cartilage in her left knee but they will not be able to do anything else until the cartilage is completely gone. She had a hysterectomy with oopherectomy earlier this year due to pelvic congestion syndrome; she has been feeling much better and is asymptomatic now. She continues to smoke 1/2 ppd. 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 We will obtain labwork at her next follow up next year. Chronic pain of left knee 03/15/2023 Assessment & Plan (04/06/2023 3:47 PM EST): 2 ER visits. Multiple calls to the facility. Recent office visit yesterday with [facility] for the same complaints. States the medications that we have suggested/ER has suggested are not working. Went to Ortho [facility] today; they stated to continue current tx and they will not give her anything stronger until after the surgery. The pt states she has gotten Vicodin for this type of pain before, around 3y ago; I was unable to find it in her chart. We discussed that if she was drowsy/unable to function on Rolando, she most definitely could not have anything stronger (narcotics/opioids). She stated that she cannot take a lot of medications because of her seizures; she is also not willing to try any non-narcotics. She states the Vicodin works. I discussed with her again that we did not prescribe that for her and will not prescribe it again. She states that she has been taking Tylenol and Ibuprofen regularly; after review of other notes/encounters she has not been consistent with it. She is waiting on an MRI to be approved by her Insurance. The Ortho surgeon states that she will likely need laparoscopic sx. She is not happy about this. She is specifically looking for Vicodin and was recently at the ED on the and asked for it as well. She was advised to continue with her current tx regimen and was not given it. Assessment & Plan (03/15/2023 12:58 PM EDT): Chronic. States it usually does not act up/cause pain until wintertime. States for the last few weeks it has been getting progressively worse with pain. She is unable to fully bear weight on it. States she has been seen by [facility] and has had Cortisone injections as well as gel injections. Her last imaging was over 1.5y ago as well as her last appts with [facility]. She states that [facility] told her that she has deteoriations in the knee joint but she is not at the point where it needs to be fixed/replaced. She states that she has been taking her Vicodin (left over from her hysterectomy) with little relief. She states that she would not like to go back with [facility] for further tx/evaluation. We will put in a referral for possible [facility], which is where she will like to go. We have ordered XR of the left knee and an MRI. Nutritional counseling 03/15/2023 Assessment & Plan (03/15/2023 12:41 PM EDT): Current BMI 17.89. States she cannot get her weight up, especially since her surgery earlier this year. She is open to discuss other options with our Nutritional staff. We have referred her to Nutrition. Protein-calorie malnutrition, unspecified severi ty 06/06/2022 Assessment & Plan (03/15/2023 12:46 PM EDT): BMI 17.89 today. States she cannot get above 100#, especially since her sx earlier this year. Has been trying to increase her protein intake but cannot gain weight. She is agreeable to a nutrition evaluation/discussion. We referred her to nutrition services. Seizure disorder (CMS/HCC) 06/06/2022 Assessment & Plan (03/15/2023 12:59 PM EDT): Due to hx of CVA with ACM. Has not had a sx in 2y. Followed closely by Neuro. Continue with current medication regimen. AVM (arteriovenous malformation) 06/06/2022 Asthma 06/06/2022 Panic disorder 05/19/2022 Anxiety 05/05/2022 Tobacco use disorder 07/20/2018 Assessment & Plan (03/15/2023 12:39 PM EDT): Continues to smoke 1/2 ppd. Does not want to quit at this point. Encounters Date Type Department Care Team Description 05/26/[address] [address] Hamida Vickers FNP hospital discharge, obtain hospital records 05/19/[address] [address] Hamida Vickers FNP 05/19/2025 Patient Outreach [facility] ([facility]) Department [address] [place] [phone] Antionette Khanna 05/15/2025 12:00 PM EST Telemedicine [address] [address] Hamida Vickers FNP Injury of left shoulder, sequela (Primary Dx); Cervical pain (neck); Weight loss; Chronic pain syndrome 05/14/2025 Patient Outreach [facility] ([facility]) Department [address] [place] [phone] Antionette Khanna 05/12/[address] [address] Hamida Vickers FNP Acute midline thoracic back pain 04/22/2025 Patient Outreach [facility] ([facility]) Department [address] [phone] Antionette Khanna 04/21/[address] [address] Hamida Vickers, SPOOLING MACHINE OPERATOR New Med Request 04/16/[address] [address] Hamida Vickers FNP Advice Only 04/14/2025 Patient Outreach [facility] ([facility]) Department [address] [phone] Antionette Khanna 04/11/2025 Results Follow-Up [address] [address] Hamida Vickers FNP MR Thoracic Spine w/o Contrast 04/10/[address] [address] Hamida Vickers, SPOOLING MACHINE OPERATOR Failure to thrive in adult (Primary Dx); Protein-calorie malnutrition, unspecified severity (CMS/HCC) 04/10/[address] [address] Hamida Vickers, SPOOLING MACHINE OPERATOR Neck Pain; Medication Problem; Cortizone Shot 04/08/[address] [address] Hamida Vickers SPOOLING MACHINE OPERATOR claustrophobia for MRI 04/04/2025 Patient Outreach [facility] ([facility]) Department [address] [phone] Antionette Khanna 04/02/2025 10:00 AM EST Office Visit [address] [address] Hamida Vickers, SPOOLING MACHINE OPERATOR Neuropathy (Primary Dx); Severe back pain; Acute midline thoracic back pain; Protein-calorie malnutrition, unspecified severity (CMS/HCC) 02/26/2025 Refill [facility] [address] [place] [address] Hamida Vickers, FRANCIE Acute midline thoracic back pain from Last 3 Months Immunizations Immunization Administration Dates Next Due Tdap 01/08/2019,11/30/2012 Family History Medical History Relation Name Comments Breast cancer Maternal Grandmother Valeriy Parkinson White syndrome Sister Cataracts Neg Hx Glaucoma Neg Hx Macular degeneration Neg Hx Relation Name Status Comments Maternal Grandmother Sister Social History Tobacco Use Types Packs/Day Years Used Date Smoking Tobacco: Every Day Cigarettes Passive Smoke Exposure: Current Smokeless Tobacco: Never Tobacco Cessation:Ready to Q uit: Not Asked; Counseling Given: Not Answered Alcohol Use Standard Drinks/Week Comments Not Currently 0 (1 standard drink = 0.6 oz pur e alcohol) 9 years sober PHQ-2 Answer Date Recorded Patient Health Questionnaire-2 Score 0 12/07/2022 Alcohol Answer Date Recorded How often do you have a drink containing alcohol ? 0 08/20/2024 How many drinks containing a lcohol do you have on a typical day when you are drinking? 0 08/20/2024 How often do you have six or more drinks on one occasion? 0 08/20/2024 Housing Stability Answer Date Recorded What is your housing situation today? I have zaida foy 08/20/[address] you li ve. Do you have problems with any of the following? None of the above 08/20/2024 Food Insecurity Answer Date Recorded Within the past 12 months, y ou worried that your food would run out before you got money to buy more: Never True 08/20/2024 Within the past 12 months,th e food you bought just didn't last and you didn't have enough money to get more: Never True Transportation Answer Date Recorded In the past 12 months, has l ack of transportation kept you from medical appts, meetings, work or from getting things needed for daily living? No 08/20/2024 Utilities Answer Date Recorded In the past 12 months, has t he electric, gas, oil or water company threatened to shut off services in your home? No 08/20/2024 Depression Answer Date Recorded Patient Health Questionnaire-2 Score 0 08/20/2024 Internet Access Answer Date Recorded Internet Access Q1 Yes 08/20/2024 Internet Access Q2 Not on file 08/20/2024 Comments No Intention Date Recorded No desire to become (finding) 0 08/20/2024 Sex and Gender Information Value Date Recorded Sex Assigned at Female 05/04/2022 2:50 PM EST Legal Sex Female 5:36 PM EDT Gender Identity Female 05/04/2022 2:50 PM EST Sexual Orientation Straight 06/06/2022 10 :28 AM EST Last Filed Vital Signs Vital Sign Reading Time Taken Comments Blood Pressure 100/60 04/02/2025 10:20 AM EST Pulse 80 04/02/2025 10:20 AM EST Temperature 36.7 C (98 F) 04/02/2025 10:20 AM EST Respiratory Rate 16 04/02/2025 10:20 AM EST Oxygen Saturation 98% 08/20/2024 10:41 AM EDT Inhaled Oxygen Concentration - - Weight 40.9 kg (90 lb 3.2 oz) 04/02/2025 10:20 A M EST Height 157.5 cm (5' 2 ) 04/02/2025 10:20 AM EST Body Mass Index 16.5 04/02/2025 10:20 AM EST Plan of Treatment Health Maintenance Due Date Last Done Comments Lipid Panel 1990 Disability Screening 1990 HPV Vaccines (1 - 3-dose series) 2005 Hepatitis B Vaccines (1 of 3 - 19+ 3-dose series) 2009 Pneumococcal Vaccine: Pediatrics (0 to 5 Years) and At-Risk Patients (6 to 49) Years (1 of 2 - PCV) 2009 HPV/Cotest 06/21/2016 Pap Smear 06/21/2016 06/21/2011 COVID-19 Vaccine (1 - 2024-2 6 season) 2025 Influenza Vaccine (#1) 2025 Alcohol/Substance Use Screening 08/20/2025 08/20/2024 Depression Screening 08/20/2025 08/20/2024, 08/20/2024 Family Planning (PISQ) 08/20/2025 08/20/2024 SDOH Screening 08/20/2025 08/20/2024 Tobacco Screening 04/02/2026 04/02/2025 DTaP/Tdap/Td Vaccines (3 - T d or Tdap) 01/08/2029 01/08/2019, 11/30/2012 Zoster Vaccines (1 of 2) 2040 RSV Patients and Patients Aged 60 years or older (1 - 1-dose 75+ series) 2065 Hepatitis C Screening Completed 03/28/2018 HIV Screening Completed 03/29/2018 HIB Vaccines Aged Out No longer eligi ble based on patient's age to complete this topic Hepatitis A Vaccines Aged Out No long er eligible based on patient's age to complete this topic IPV Vaccines Aged Out No longer eligi ble based on patient's age to complete this topic Meningococcal B Vaccine Aged Out No l onger eligible based on patient's age to complete this topic Meningococcal Vaccine Aged Out No suhail umberto eligible based on patient's age to complete this topic RSV under 20 months Aged Out No longe r eligible based on patient's age to complete this topic Rotavirus Vaccines Aged Out No longer eligible based on patient's age to complete this topic Procedures Procedure Name Priority Date/Time Associated Diagnosis Comments AMB REFERRAL TO NEUROLOGY Routine 04/21/2025 Unspecified convulsions (CMS/HCC) (HCC) MR THORACIC SPINE WO CONTRAST Urgent 04/08/2025 4:05 PM EST Neuropathy Severe back pain AMB REFERRAL TO ORTHOPAEDICS Urgent 04/03/2025 Injury of left shoulder, sequela HIV-1 ANTIBODY, EIA Routine 03/29/2018 HEPATITIS C ANTIBODY (EXTERNAL RESULTS ONLY) Routine 03/28/2018 12:25 PM EDT PAP SMEAR Routine 06/21/2011 12:00 AM EST from Last 3 Months or Most Recently Relevant to Health Maintenance Results * Referral to Neurology (04/21/2025) Hamida Vickers [facility] OUTPATIENT REFERRAL ORDER AMY Final Result * MR Thoracic Spine w/o Contrast (04/08/2025 4:05 PM EST) Anatomical Region Laterality Modality Spine, T-spine Magnetic Resonan ce 04/08/2025 4:05 PM EST Narrative 04/11/2025 9:48 AM EST MRI Thoracic Spine W/O Contrast HISTORY: Reason: G62.9 M54.9 NEUROPATHY SEVERE BACK PAIN; Clinical Question(s): Other: TECHNIQUE: Multisequence multiplanar MRI of the thoracic spine was performed without intravenous contrast. COMPARISON: Thoracic spine x-rays, 09/06/2024. CT chest, 06/16/2024. FINDINGS: ALIGNMENT, VERTEBRAE, MARROW, AND DISCS: Vertebral body height, curvature, and alignment are normal. There is minimal disc desiccation at T8-9 without disc space narrowing. Bone marrow signal is normal. CORD: The thoracic cord is normal in signal and contour. PARASPINAL TISSUES: Visualized paraspinal soft tissues are unremarkable. FINDINGS BY LEVEL: No significant central stenosis or neural foraminal narrowing is seen at any level in the thoracic spine. IMPRESSION: No evidence of traumatic injury or significant degenerative disease. No canal or neural foraminal stenosis at any level. WSN: [id number] Ordering Physician: Hamida Vickers Dictated By: Jeana Jenkins MD Dictated Date/Time: 04/11/25 9:45 am Reviewed By: Jeana Jenikns MD Signed By: Jeana Jenkins MD Signed Date/Time: 04/11/25 9:45 am Transcribed By: CINDI Transcribed Date/Time: 04/11/25 9:43 am Procedure Note Donotuseinterpreter, Image - 04/11/2025 MRI Thoracic Spine W/O Contrast HISTORY: Reason: G62.9 M54.9 NEUROPATHY SEVERE BACK PAIN; ClinicalQuestion(s): Other: TECHNIQUE: Multisequence multiplanar MRI of the thoracic spine wasperformed without intravenous contrast. COMPARISON: Thoracic spine x-rays, 09/06/2024. CT chest, 06/16/2024. FINDINGS: ALIGNMENT, VERTEBRAE, MARROW, AND DISCS: Vertebral body height, curvature,and alignment are normal. There is minimal disc desiccation at T8-9 withoutdisc space narrowing. Bone marrow signal is normal. CORD: The thoracic cord is normal in signal and contour. PARASPINAL TISSUES: Visualized paraspinal soft tissues are unremarkable. FINDINGS BY LEVEL: No significant central stenosis or neural foraminal narrowing is seen atany level in the thoracic spine. IMPRESSION: No evidence of traumatic injury or significant degenerative disease. Nocanal or neural foraminal stenosis at any level. WSN: [id number] Ordering Physician: Hamida Vickers Dictated By: Jeana Jenkins MD Dictated Date/Time: 04/11/25 9:45 am Reviewed By: Jeana Jenkins MD Signed By: Jeana Jenkins MD Signed Date/Time: 04/11/25 9:45 am Transcribed By: CINDI Transcribed Date/Time: 04/11/25 9:43 am Result [facility] Hamida Vickers [facility] IMG MRI PROCEDURES Edited Result - Final * Referral to Orthopaedics (04/03/2025) Hamida Vickers [facility] OUTPATIENT REFERRAL ORDER AMY Final Result * HIV-1 antibody, EIA (03/29/2018) External HIV-1 Antibody Negative Blood Venous blood specimen / Unknown Result [facility] Historical Provider LAB BLOOD ORDERABLES Ashleigh l Result * Hepatitis C Antibody (03/28/2018 12:25 PM EDT) Hepatitis C Antibody Nonreactive Blood 03/28/2018 12:2 5 PM EDT Result [facility] Historical Provider POINT OF CARE TEST ENTER/ EDIT ORDERABLES Final Result * Pap Smear (06/21/2011 12:00 AM EST) Swab Result [facility] Historical Provider LAB CYTOLOGY ORDERABLES F inal Result from Last 3 Months or Most Recently Relevant to Health [place] [address] [facility] Care Teams Medical Lab Technician Relationship Specialty Start Date End Date Hamida Vickers FNP [address] [place] [address] [place] [id number] PCP - General Family Medicine 09/27/23 Rylie Busby LICSW [address] [facility] [place] [id number] [facility] 05/05/22 Antionette Khanna 04/04/25
--- OUTSIDE RECORDS SUMMARY | 2025-05-26 11:43 | XMS_ITS | Encounter Summary ---
Author Organization [employer] Address [address] [facility] 7t [place] [address] Care Team Providers Care Plastics Seasoner Operator Name Role Phone Rylie BusbySW Unavailable [phone] Claudia Werner MD Primary Care Provider [phone] Monica Elizabeth Primary Care Provider [phone] Jacey Jimenez Unavailable Unavailable Sylvia Robbins DO Primary Care Provider Hamida Vickers Primary Care Provider Antionette Khanna Unavailable Antionette Khanna Unavailable Encounter Details Date Type Department Care Team (Late st Contact Info) Description 03/17/2023 Orders Only Alvaro [facility] MEDICAL [address] [facility] [place] Bhandari [address] Monica Elizabeth PA [address] [place], [place] [id number] Social History Tobacco Use Types Packs/Day Years Used Date Smoking Tobacco: Every Day Cigarettes Smokeless Tobacco: Never Alcohol Use Standard Drinks/Week Comments Not Currently 0 (1 standard drink = 0.6 oz pur e alcohol) 9 years sober PHQ-2 Answer Date Recorded Patient Health Questionnaire-2 Score 0 12/07/2022 Housing Stability Answer Date Recorded What is your housing situation today? I have zaida foy 03/15/[address] you li ve. Do you have problems with any of the following? None of the above 03/15/2023 Food Insecurity Answer Date Recorded Within the past 12 months, y ou worried that your food would run out before you got money to buy more: Never True 03/15/2023 Within the past 12 months,th e food you bought just didn't last and you didn't have enough money to get more: Never True Transportation Answer Date Recorded In the past 12 months, has l ack of transportation kept you from medical appts, meetings, work or from getting things needed for daily living? No 03/15/2023 Utilities Answer Date Recorded In the past 12 months, has t he electric, gas, oil or water company threatened to shut off services in your home? No 03/15/2023 Depression Answer Date Recorded Patient Health Questionnaire-2 Score 0 12/07/2022 Comments Unknown Sex and Gender Information Value [...] on filedocumented in this encounter Care Teams Plastics Seasoner Operator Relationship Specialty Start Date End Date Claudia Werner MD [address] [place] [address] PCP - General Internal Medicine 06/17/22 03/21/23 Monica Elizabeth PA [address] [place] [address] PCP - General Family Medicine 03/22/23 05/18/23 Sylvia Robbins DO [address] [place] [address] PCP - General Family Medicine 05/19/23 09/26/23 Hamida Vickers FNP [address] [place] [address] PCP - General Family Medicine 09/27/23 Rylie Busby, MOA [address] [place] [address] Radiation Protection Specialist Behavioral Health 05/05/22 Jacey Jimenez Community Health Worker 05/19/23 10/31/24 Antionette Khanna 12/30/24 12/31/24 Antionette Khanna 04/04/25 documented as of this encounter
--- OUTSIDE RECORDS SUMMARY | 2025-05-26 11:43 | XMS_ITS | Encounter Summary ---
Author Organization [facility] Address [address] [place] [address] Phone Care Team Providers Care Blister Packaging Machine Operator Name Role Phone Alessio Jeffery MD Unavailable Yoanna Varela MD Unavailable [phone] Nahun Oliver MD Unavailable [phone] Yumiko Shearer MD Unavailable [phone] Claudia Werner MD Primary Care Provider [phone] Hamida Vickers [facility] Primary Care Prov ider Encounter Details Date Type Department Care Team (Late st Contact Info) Description 10/28/2022 Procedure Pass OR Admitting Dept - [facility] Department [address] [place] [address] Social History Tobacco Use Types Packs/Day Years [...] Description 06/27/2025 10:00 AM EST Office Visit [facility] [address] [place] [address] [place] [address] Yumiko Shearer MD [address] [place] [address], [address] [address] [email or web address] documented as of this [...] documented as of this encounter Care Teams Blister Packaging Machine Operator Relationship Specialty Start Date End Date Claudia Werner MD [address] [place] [address] PCP - General Internal Medicine 06/19/22 09/01/24 Hamida Vickers CNP [address] [place] [address] PCP - General Nurse Practitioner 09/02/24 Alessio Jeffery MD [address] [place] [address] Historical LMR Provider 03/15/17 Yoanna Varela MD [address] [place] [email or web address] Historical LMR Provider 03/15/17 Nahun Oliver MD [address] [place] [address] Historical LMR Provider 03/15/17 Yumiko Shearer MD [address] [place] [address] Historical LMR Provider 03/15/17 documented as of this encounter Additional Source Comments The information contained in this document represents components of the legal health record. It is not the complete legal health record.[facility]
--- OUTSIDE RECORDS SUMMARY | 2025-05-26 11:43 | XMS_ITS | Encounter Summary ---
Author Organization [facility] Address [address] [facility] [address] [place] [address] Phone Care Team Providers Care Production Control Manager Name Role Phone Char Guerrero CNM Unavailable [phone] Alessio Jeffery MD Unavailable Imelda Barcenas NP Unavailable [phone] Yoanna Varela MD Unavailable Nahun Oliver MD Unavailable [phone] Yumiko Shearer MD Unavailable Daisy Magaña MD Unavailable [phone] Bessie Stearns NP Primary Care Provide r Claudia Werner MD Primary Care Provider Hamida Vickers [facility] Primary Care Prov ider Encounter Details Date Type Department Care Team (Late st Contact Info) Description 10/02/2020 Transcribe Orders Virtual Department [address] [place] [address] Bessie Stearns, RAHEEM [address] [place] [address] Acute pain of right shoulder (Primary Dx) Social History Tobacco Use Types Packs/Day Years Used Date Smoking Tobacco: Every Day Cigarettes Smokeless Tobacco: Never Alcohol Use Standard Drinks/Week Comments No 0 (1 standard drink = 0.6 oz pur e alcohol) Comments No Sex and Gender Information Value [...] Description 06/27/2025 10:00 AM EST Office Visit [facility]ne[facility] Clinic [address] [place] [address] [place] [address] Yumiko Shearer MD [address] [place] [address], [facility] [address] [place] [address] [email or web address] documented as of this encounter Visit Diagnoses Diagnosis Acute pain of right shoulder- Primary documented in this encounter Additional Health Concerns Infection Onset Date Last Indicated Resolved Time CoV-Risk 07/08/2023 07/08/2023 07/19/2023 1:23 AM EST CoV-Risk 08/29/2023 08/29/2023 09/09/2023 1:22 AM EDT CoV-Risk 10/11/2023 10/11/2023 10/22/2023 1:22 AM EDT Resp-Risk 05/20/2025 05/20/2025 05/20/2025 10:0 8 AM EST Influenza A 05/20/2025 05/20/2025 documented as of this encounter Care Teams Production Control Manager Relationship Specialty Start Date End Date Bessie Stearns NP [address] [place] [address] PCP - General 10/02/20 06/18/22 Claudia Werner MD [address] [place] [address] [email or web address] PCP - General Internal Medicine 06/19/22 09/01/24 Rancho Hamidaadelita Wheatley CNP [address] [place] [address] PCP - General Nurse Practitioner 09/02/24 Char Guerrero CNM [address] [place] [address] Historical LMR Provider 03/15/17 2 Alessio Jeffery MD [address] [place] [address] Historical LMR Provider 03/15/17 Imelda Barcenas NP [address] [place] [address] [email or web address] Historical LMR Provider 03/15/17 06/05/21 Yoanna Varela MD [address] [place] [address] Historical LMR Provider 03/15/17 Nahun Oliver MD [address] [place] [address] Historical LMR Provider 03/15/17 Yumiko Shearer MD [address] [place] [address] Historical LMR Provider 03/15/17 Daisy Magaña MD [address] [place] [id number] Historical LMR Provider 03/15/17 2 documented as of this encounter Additional Source Comments The information contained in this document represents components of the legal health record. It is not the complete legal health record.[facility]
--- OUTSIDE RECORDS SUMMARY | 2025-05-26 11:43 | XMS_ITS | Encounter Summary ---
Author Organization [facility] Address [address] [place] [address] Phone Care Team Providers Care Apartment Maintenance Name Role Phone Alessio Jeffery MD Unavailable Yoanna Varela MD Unavailable [phone] Nahun Oliver MD Unavailable [phone] Yumiko Shearer MD Unavailable [phone] Claudia Werner MD Primary Care Provider [phone] Hamida Vickers [facility] Primary Care Prov ider Encounter Details Date Type Department Care Team (Latest Contact Info) Description 03/15/2023 Transcribe Orders Virtual Department [address] [place] [address] Monica Elizabeth PA-C [address] [place] [address] [email or web address] Chronic pain of left knee (Primary Dx) [...] Description 06/27/2025 10:00 AM EST Office Visit [facility] Obstetrics and Gynecology Clinic [address] [place] [address] [place] [address] Yumiko Shearer MD [address] [place] [address], [address] [place] [address] [email or web address] documented as of this encounter Visit Diagnoses Diagnosis Chronic pain of left knee- Primary documented in this encounter Additional Health Concerns Infection Onset Date Last Indicated Resolved Time CoV-Risk 07/08/2023 07/08/2023 07/19/2023 1:23 AM EST CoV-Risk 08/29/2023 08/29/2023 09/09/2023 1:22 AM EDT CoV-Risk 10/11/2023 10/11/2023 10/22/2023 1:22 AM EDT Resp-Risk 05/20/2025 05/20/2025 05/20/2025 10:0 8 AM EST Influenza A 05/20/2025 05/20/2025 documented as of this encounter Care Teams Apartment Maintenance Relationship Specialty Start Date End Date Claudia Werner MD [address] [place] [address] PCP - General Internal Medicine 06/19/22 09/01/24 Hamida Vickers CNP [address] [place] [address] PCP - General Nurse Practitioner 09/02/24 Alessio Jeffery MD [address] [place] [address] Historical LMR Provider 03/15/17 Yoanna Varela MD [address] [place] [address] Historical LMR Provider 03/15/17 Nahun Oliver MD [address] [place] [address] Historical LMR Provider 03/15/17 Yumiko Shearer MD [address] [place] [address] Historical LMR Provider 03/15/17 documented as of this encounter Additional Source Comments The information contained in this document represents components of the legal health record. It is not the complete legal health record.[facility]
--- OUTSIDE RECORDS SUMMARY | 2025-05-26 11:43 | XMS_ITS ---
Author Organization [employer] Address [address] [place] [address] 7 [place] [address] Care Team Providers Care Medical Clerical Assistant Name Role Phone Rylie Busby OMA Unavailable [phone] Hamida Vickers Primary Care Provider [phone] Antionette Khanna Unavailable CM Complex Status:Outreach In Progress (Enrolling) Start date:04/04/2025 Enrollment reason:Risk Strat Case Team Name Relationship Phone Antionette Khanna(Responsible Staff) [phone] Continued Care and Services Coordination
--- OUTSIDE RECORDS SUMMARY | 2025-05-26 11:43 | XMS_ITS | Encounter Summary ---
Author Organization [employer] Address [address] [facility] [address] 7t [place] [address] Care Team Providers Care Anode Adjuster Name Role Phone Rylie BusbySW Unavailable [phone] Hamida Vickers Primary Care Provider [phone] Antionette Khanna Unavailable Encounter Details Date Type Department Care Team (Late st Contact Info) Description 04/11/2025 Results [facility] MEDICAL [address] [place], [place] [id number] Hamida Vickers FNP [address] [place] [address] MR Thoracic Spine w/o Contrast Social History Tobacco Use Types Packs/Day Years Used Date Smoking Tobacco: Every Day Cigarettes Passive Smoke Exposure: Current Smokeless Tobacco: Never Alcohol Use Standard Drinks/Week [...] Q2 Not on file 08/20/2024 Comments No Sex and Gender Information Value Date Recorded Sex Assigned at Female 05/04/2022 2:50 PM EST Legal Sex Female 5:36 PM EDT Gender Identity Female 05/04/2022 2:50 PM EST Sexual Orientation Straight 06/06/2022 10 :28 AM EST documented as of this encounter Miscellaneous Notes * Telephone Encounter - Kaitlin Acosta RN - 04/11/2025 1:14 PM EST LMOM for patient to call. * Telephone Encounter - Kaitlin Acosta RN - 04/11/2025 10:39 AM EST See TE from 04/10/25. Patient has called [facility] and is awaiting a call back. documented in this encounter Plan of Treatment Not on file documented as of this encounter Visit Diagnoses Not on filedocumented in this encounter Care Teams Anode Adjuster Relationship Specialty Start Date End Date Hamida Vickers FNP [address] [place] [address] PCP - General Family Medicine 09/27/23 Rylie Busby LICSW [address] [place] [address] Digital Imager Behavioral Health 05/05/22 Antionette Khanna 04/04/25 documented as of this encounter
--- OUTSIDE RECORDS SUMMARY | 2025-05-26 11:43 | XMS_ITS | Encounter Summary ---
Author Organization [facility] Address [address] [place] [address] Phone Care Team Providers Care Portfolio Architect Name Role Phone Alessio Jeffery MD Unavailable Yoanna Varela MD Unavailable [phone] Nahun Oliver MD Unavailable [phone] Yumiko Shearer MD Unavailable [phone] Claudia Werner MD Primary Care Provider [phone] Hamida Vickers [facility] Primary Care Prov ider Encounter Details Date Type Department Care Team (Late st Contact Info) Description 10/28/2022 Procedure Pass OR Admitting Dept - [facility] Department [address] [place] [address] Social History Tobacco Use Types Packs/Day Years [...] 06/27/2025 10:00 AM EST Office Visit [facility] Obstetrics and Gynecology Clinic [address] [place] [address] [place] [address] Yumiko Shearer MD [address] [place] [address], [address] [address] [email or web address] documented as of this encounter Visit Diagnoses Not on filedocumented in this encounter Additional Health Concerns Infection Onset Date Last Indicated Resolved Time CoV-Risk 07/08/2023 07/08/2023 07/19/2023 1:23 AM EST CoV-Risk 08/29/2023 08/29/2023 09/09/2023 1:22 AM EDT CoV-Risk 10/11/2023 10/11/2023 10/22/2023 1:22 AM EDT Resp-Risk 05/20/2025 05/20/2025 05/20/2025 10:0 8 AM EST Influenza A 05/20/2025 05/20/2025 documented as of this encounter Care Teams Portfolio Architect Relationship Specialty Start Date End Date Claudia Werner MD [address] [place] [address] PCP - General Internal Medicine 06/19/22 09/01/24 Hamida Vickers CNP [address] [place] [address] PCP - General Nurse Practitioner 09/02/24 Alessio Jeffery MD [address] [place] [address] Historical LMR Provider 03/15/17 Yoanna Varela MD [address] [place] [address] Historical LMR Provider 03/15/17 Nahun Oliver MD [address] [place] [address] Historical LMR Provider 03/15/17 Yumiko Shearer MD [address] [place] [address] Historical LMR Provider 03/15/17 documented as of this encounter Additional Source Comments The information contained in this document represents components of the legal health record. It is not the complete legal health record.[facility]
--- OUTSIDE RECORDS SUMMARY | 2025-05-26 11:43 | XMS_ITS | Encounter Summary ---
Author Organization [facility] Address [address] [facility] [address] [place] [address] Phone Care Team Providers Care Accessibility Lift Technician Name Role Phone Alessio Jeffery MD Unavailable Yoanna Varela MD Unavailable [phone] Nahun Oliver MD Unavailable [phone] Yumiko Shearer MD Unavailable [phone] Hamida Vickers CNP Primary Care Prov ider Reason for Referral * MRI/CAT Scan - Closed Specialty Diagnoses / Procedures Referred By Steffany fletcher Referred To Contact Radiology Diagnoses Fall, sequela Procedures MRI Shoulder (Left) Hamida Vickers CNP [address] [place] [address] Phone: tel: fax: Referral ID Status Reason Start Date Expiration Date Visits Re quested Visits Authorized [id number] Closed 01/10/2025 01/10/2026 1 1 Encounter Details Date Type Department Care Team (Latest Contact Info) Description 01/10/2025 Transcribe Orders Virtual Department [address] [place] [address] Hamida Vickers CNP [address] [place], [place] [id number] Fall, sequela (Primary Dx) Social History Tobacco Use Types [...] as food, clothing, or medical care? No 12/20/2024 In the past 12 months have y ou been in a relationship with a person who hurts, threatens, or tries to control you? No 12/20/2024 Are you denied basic needs s uch as food, clothing, or medical care? No 12/20/2024 In the past 12 months have y ou been in a relationship with a person who hurts, threatens, or tries to control you? No 12/20/2024 Comments No Sex and Gender Information Value [...] Description 06/27/2025 10:00 AM EST Office Visit [facility] Obstetrics and Gynecology Clinic [facility] [place] [address] Yumiko Shearer MD [address] [place] [address], [address] [place] [address] documented as of this encounter Results * MRI SHOULDER WITHOUT CONTRAST (LEFT) (01/18/2025 10:01 AM EDT) Anatomical Region Laterality Modality Shoulder Left Magnetic Resonan ce 01/21/2025 3:59 PM EDT Impressions 01/21/2025 4:02 PM EDT 1. No evidence of fracture or marrow edema. 2. Mild rotator cuff insertional tendinosis. No high-grade focal tear, retraction, or chronic muscle atrophy. Narrative 01/21/2025 4:02 PM EDT MRI SHOULDER WITHOUT CONTRAST (LEFT) Referring clinician's provided indication for this examination in [facility]: Outside Radiology Order; fall HISTORY: Left shoulder pain. COMPARISONS: None. TECHNIQUE: Multiplanar, multisequence imaging through the left shoulder, without IV gadolinium. FINDINGS: ROTATOR CUFF: Mild rotator cuff insertional tendinosis with minor signal abdomen malady and fraying within the supraspinatus and infraspinatus. No high-grade focal or full thickness tear, nor retraction. No significant chronic muscle atrophy. AC JOINT: Minimal degenerative change. BONE MARROW: No fracture or pathologic marrow edema. BICIPITAL TENDON: The long head of the biceps is intact and normally situated. GLENOID LABRUM: Limited nonarthrographic labral assessment. No discrete tear or para-labral cyst seen. GLENOHUMERAL JOINT: No evidence of advanced osteoarthritis, joint effusion, or focal chondral defect. PERIARTICULAR SOFT TISSUES: Otherwise unremarkable. Procedure Note Sven Jo MD - 01/21/2025 MRI SHOULDER WITHOUT CONTRAST (LEFT) Referring clinician's provided indication for this examination in Epic:Outside Radiology Order; fall HISTORY: Left shoulder pain. COMPARISONS: None. TECHNIQUE: Multiplanar, multisequence imaging through the left shoulder,without IV gadolinium. FINDINGS: ROTATOR CUFF: Mild rotator cuff insertional tendinosis with minor signalabdomen malady and fraying within the supraspinatus and infraspinatus. Nohigh-grade focal or full thickness tear, nor retraction. No significantchronic muscle atrophy. AC JOINT: Minimal degenerative change. BONE MARROW: No fracture or pathologic marrow edema. BICIPITAL TENDON: The long head of the biceps is intact and normallysituated. GLENOID LABRUM: Limited nonarthrographic labral assessment. No discretetear or para-labral cyst seen. GLENOHUMERAL JOINT: No evidence of advanced osteoarthritis, jointeffusion, or focal chondral defect. PERIARTICULAR SOFT TISSUES: Otherwise unremarkable. IMPRESSION: 1. No evidence of fracture or marrow edema. 2. Mild rotator cuff insertional tendinosis. No high-grade focal tear,retraction, or chronic muscle atrophy. Hamida Vickers REAL ESTATE LOAN PROCESSOR IMG MR EXTREMITY F inal Result documented in this encounter Visit Diagnoses Diagnosis Fall, sequela- Primary Fall, sequela documented in this encounter Additional Health Concerns Infection Onset Date Last Indicated Resolved Time Resp-Risk 05/20/2025 05/20/2025 05/20/2025 10:0 8 AM EST Influenza A 05/20/2025 05/20/2025 documented as of this encounter Care Teams Accessibility Lift Technician Relationship Specialty Start Date End Date Hamida Vickers CNP [address] [place] [address] PCP - General Nurse Practitioner 09/02/24 Alessio Jeffery MD [address] [place] [address] [email or web address] Historical LMR Provider 03/15/17 Yoanna Varela MD [address] [place] [address] Historical LMR Provider 03/15/17 Nahun Oliver MD [address] [place] [address] Historical LMR Provider 03/15/17 Yumiko Shearer MD [address] [place] [address], [address] [address] [email or web address] Historical LMR Provider 03/15/17 documented as of this encounter Additional Source Comments The information contained in this document represents components of the legal health record. It is not the complete legal health record.[facility]
--- OUTSIDE RECORDS SUMMARY | 2025-05-26 11:43 | XMS_ITS | Encounter Summary ---
Author Organization [facility] Address [address] [facility] [address] [address] [place] [address] Phone Care Team Providers Care Combination Welder Name Role Phone Alessio Jeffery MD Unavailable Yoanna Varela MD Unavailable [phone] Nahun Oliver MD Unavailable [phone] Yumiko Shearer MD Unavailable [phone] Hamida Vickers [facility] Primary Care Prov ider Encounter Details Date Type Department Care Team (Late st Contact Info) Description 01/10/2025 Procedure Pass [facility], [address] [address] Social History Tobacco Use Types Packs/Day Years [...] 06/27/2025 10:00 AM EST Office Visit [facility] Obstetrics and Gynecology Clinic [address] [place] [address] [place] [address] Yumiko Shearer MD [address] [place] [address], [address] [address] documented as of this encounter Visit Diagnoses Not on filedocumented in this encounter Additional Health Concerns Infection Onset Date Last Indicated Resolved Time Resp-Risk 05/20/2025 05/20/2025 05/20/2025 10:0 8 AM EST Influenza A 05/20/2025 05/20/2025 documented as of this encounter Care Teams Combination Welder Relationship Specialty Start Date End Date Hamida Vickers CNP [address] [place] [address] PCP - General Nurse Practitioner 09/02/24 Alessio Jeffery MD [address] [place] [address], [address] [address] Historical LMR Provider 03/15/17 Yoanna Varela MD [address] [address] Historical LMR Provider 03/15/17 Nahun Oliver MD [address] [place] [address] Historical LMR Provider 03/15/17 Yumiko Shearer MD [address] [place] [address] [email or web address] Historical LMR Provider 03/15/17 documented as of this encounter Additional Source Comments The information contained in this document represents components of the legal health record. It is not the complete legal health record.[facility]
--- OUTSIDE RECORDS SUMMARY | 2025-05-26 11:43 | XMS_ITS | Clinical Summary ---
Author Organization [facility] ity Address [address] [place] [address] Care Team Providers Care Pharm Spec Name Role Phone Unavailable Primary Care Provider Unavailabl e Social History Tobacco Use Types Packs/Day Years Used Date Smoking Tobacco: Never Assessed Comments Unknown Sex and Gender Information Value Date Recorded Sex Assigned at Not on file Legal Sex Female 1:36 PM EDT Gender Identity Not on file Sexual Orientation Not on file Plan of Treatment Health Maintenance Due Date Last Done Comments DTaP,Tdap,and Td Vaccines (1 - Tdap) 2009 Hepatitis B Vaccines (1 of 3 - 19+ 3-dose series) 2009 Cervical Cancer Screening: P ap Smear 2011 HPV Vaccines (1 - 3-dose SCD M series) 2017 HIV Screening 12/29/2023 Hepatitis C Screening 12/29/2023 Social Influencers of Health Screening 12/29/2023 Depression Screening 05/29/2024 COVID-19 Vaccine (1 - 2024-2 6 season) 2025 Influenza Vaccine (#1) 2025 RSV Immunization Adult Patie nts (1 - 1-dose 75+ series) 2065 HIB Vaccines Aged Out No longer eligi ble based on patient's age to complete this topic Hepatitis A Vaccines Aged Out No long er eligible based on patient's age to complete this topic IPV Vaccines Aged Out No longer eligi ble based on patient's age to complete this topic MMR Vaccines Aged Out No longer eligi ble based on patient's age to complete this topic Meningococcal ACWY Vaccine Aged Out N o longer eligible based on patient's age to complete this topic Meningococcal B Vaccine Aged Out No l onger eligible based on patient's age to complete this topic Pneumococcal Vaccine: Pediat rics (0 to 5 Years) and At-Risk Patients (6 to 49 Years) Aged Out No longer eligible b ased on patient's age to complete this topic RSV Immunization Patients Un cindy 20 months Aged Out No longer eligible b ased on patient's age to complete this topic Varicella Vaccines Aged Out No longer eligible based on patient's age to complete this topic
--- OUTSIDE RECORDS SUMMARY | 2025-05-26 11:43 | XMS_ITS | Encounter Summary ---
Author Organization [employer] Address [address] [facility] [address] [place] [address] Care Team Providers Care Nurse Midwife/Clinical Instructor Name Role Phone Rylie Busby OMA Unavailable [phone] Claudia Werner MD Primary Care Provider [phone] Monica Elizabeth Primary Care Provider [phone] Jacey Jimenez Unavailable Unavailable Sylvia Robbins DO Primary Care Provider [phone] Hamida Vickers Primary Care Provider [phone] Antionette Khanna Unavailable Antionette Khanna Unavailable Encounter Details Date Type Department Care Team (Late st Contact Info) Description 09/02/2022 Orders Only [facility] MEDICAL [address] [place] [address] Provider, MD Elly Social History Tobacco Use Types Packs/Day Years Used Date Smoking Tobacco: Every Day Cigarettes Smokeless Tobacco: Never Comments Unknown Sex and Gender Information Value Date Recorded Sex Assigned at Female 05/04/2022 2:50 PM EST Legal Sex Female 5:36 PM EDT Gender Identity Female 05/04/2022 2:50 PM EST Sexual Orientation Straight 06/06/2022 10 :28 AM EST documented as of this encounter Plan of Treatment Not on file documented as of this encounter Procedures Procedure Name Priority Date/Time Associated Diagnosis Comments DRUG TOX SCREEN 5 W/CONFIRM, URINE Routine 03/15/2023 12:00 PM EDT TISSUE PATHOLOGY Routine 08/15/2022 documented in this encounter Results * (ABNORMAL) DRUG TOX SCREEN 5 W/CONFIRM, URINE (03/15/2023 12:00 PM EDT) Amphetamines, Urine NEGATIVE [facility] Comment: Reference range: <500 Unit: ng/mL Benzodiazepines, Urine POSITIVE(A ) [facility] Comment: Reference range: <100 Unit: ng/mL Alphahydroxyalprazolam NEGATIVE [facility] Comment: See Note 1 Reference range: <25 Unit: ng/mL Alphahydroxymidazolam NEGATIVE [facility] Comment: See Note 1 Reference range: <50 Unit: ng/mL Alphahydroxytriazolam NEGATIVE [facility] Comment: See Note 1 Reference range: <50 Unit: ng/mL Aminoclonazepam 302(H) [facility] Comment: See Note 1 Reference range: <25 Unit: ng/mL Hydroxyethylflurazepam NEGATIVE [facility] Comment: See Note 1 Reference range: <50 Unit: ng/mL Lorazepam NEGATIVE [facility] Comment: See Note 1 Reference range: <50 Unit: ng/mL Nordiazepam NEGATIVE [facility] Comment: See Note 1 Reference range: <50 Unit: ng/mL Oxazepam NEGATIVE [facility] Comment: See Note 1 Reference range: <50 Unit: ng/mL Temazepam NEGATIVE [facility] Comment: See Note 1 Reference range: <50 Unit: ng/mL Buprenorphine NEGATIVE [facility] Comment: Reference range: <5 Unit: ng/mL Cocaine Metabolite, Urine NEGATIVE [facility] Comment: Reference range: <150 Unit: ng/mL 6 Acetylmorphine NEGATIVE [facility] Comment: Reference range: <10 Unit: ng/mL Marijuana Metabolite NEGATIVE [facility] Comment: Reference range: <20 Unit: ng/mL 7-Ooyiuuugmi-3,5-Dimethyl -3,3-Diphenylpyrrolidine (EDDP) NEGATIVE [facility] Comment: Reference range: <100 Unit: ng/mL Opiates, Urine POSITIVE(A ) [facility] Comment: Reference range: <100 Unit: ng/mL Codeine, Urine NEGATIVE [facility] Comment: See Note 1 Reference range: <50 Unit: ng/mL Hydrocodone, Ur 808(H) [facility] Comment: See Note 1 Reference range: <50 Unit: ng/mL Hydromorphone, Urine 438(H) [facility] Comment: See Note 1 Reference range: <50 Unit: ng/mL Morphine, Urine NEGATIVE [facility] Comment: See Note 1 Reference range: <50 Unit: ng/mL Norhydrocodone, Urine 3,624(H) [facility] Comment: See Note 1 Reference range: <50 Unit: ng/mL Oxycodone, Urine NEGATIVE [facility] Comment: Reference range: <100 Unit: ng/mL Phencyclidine, Urine NEGATIVE [facility] Comment: Reference range: <25 Unit: ng/mL (NOTE) See Note 2 = Note 1 = This test was developed and its analytical performance characteristics have been determined by [facility]. It has not been cleared or approved by the FDA. This assay has been validated pursuant to the CLIA regulations and is used for clinical purposes. = Note 2 This drug testing is for medical treatment only. Analysis was performed as non-forensic testing and these results should be used only by healthcare providers to render diagnosis or treatment, or to monitor progress of medical conditions. = For assistance with interpreting these drug results, please contact a [facility] Toxicology Specialist: [phone] ( ), M-F, 8am-6pm EST. Test Performed by: [facility], [address] [place] [address]. [id number]. Oiler And Greaser: Anthony Pereira MD. Testing performed or reported by [facility], a Service of [facility], [address] [place] [address] Pal Edmondson MD, Hub Borer [facility]# [id number] 03/15/2023 12:0 0 PM EDT 03/15/2023 11:44 PM EDT us Monica MANZANARES LAB URINE ORDERABLES Final Resul t [facility] [address] [place] [address] * Tissue Pathology (08/15/2022) Tissue us Historical Provider MD LAB PATHOLOGY ORDERABLES Final Result documented in this encounter Visit Diagnoses Not on filedocumented in this encounter Care Teams Nurse Midwife/Clinical Instructor Relationship Specialty Start Date End Date Claudia Werner MD [address] [place] [address] PCP - General Internal Medicine 06/17/22 03/21/23 Monica Elizabeth PA [address] [place] [address] PCP - General Family Medicine 03/22/23 05/18/23 Sylvia Robbins DO [address] [place] [address] PCP - General Family Medicine 05/19/23 09/26/23 Hamida Vickers FNP [address] [place] [address] PCP - General Family Medicine 09/27/23 Rylie Busby LICSW [address] [place] [address] [employer] Behavioral Health 05/05/22 Jacey Jimenez Community Health Worker 05/19/23 10/31/24 Antionette Khanna 12/30/24 12/31/24 Antionette Khanna 04/04/25 documented as of this encounter
--- OUTSIDE RECORDS SUMMARY | 2025-05-26 11:43 | XMS_ITS | Encounter Summary ---
Author Organization [facility] Address [address] [facility] [address] [place] [address] Phone Care Team Providers Care Maintenance Superintendent Name Role Phone Char Guerrero CNM Unavailable Alessio Jeffery MD Unavailable Imelda Barcenas NP Unavailable [phone] Yoanna Varela MD Unavailable Nahun Oliver MD Unavailable Yumiko Shearer MD Unavailable Daisy Magaña MD Unavailable [phone] Claudia Werner MD Primary Care Provider [phone] Bessie Stearns FISHING TOOL OPERATOR Primary Care Provide r Claudia Werner MD Primary Care Provider [phone] Hamida Vickers [facility] Primary Care Prov ider Encounter Details Date Type Department Care Team (Late st Contact Info) Description 01/15/2020 Ancillary Orders [facility],Outside Imaging [address] [place], [place] [id number] System, Provider Not In, [facility] [address] [address] Social History Tobacco Use Types Packs/Day Years [...] Description 06/27/2025 10:00 AM EST Office Visit [facility] [address] [place] [address] [place] [address] Yumiko Shearer MD [address] [place] [address], [address] [address] [email or web address] documented as of this encounter Results * XR Lower Extremity Outside (No Interpretation) (01/09/2020 12:00 AM EDT) Narrative SYSTEMGENERATED, DOCUMENTATION - 01/15/2020 4:38 PM EDT This study is for PACS storage only and not for interpretation. us Provider Not In System PhD IMG OUTSIDE IMAGING W /OUT INTERPRETATION Final Result documented in this encounter Visit [...] documented as of this encounter Care Teams Maintenance Superintendent Relationship Specialty Start Date End Date Claudia Werner MD [address] [place] [phone] PCP - General Internal Medicine 09/30/18 10/01/20 Bessie Stearns, RAHEEM [address] [place] [address] PCP - General 10/02/20 06/18/22 Claudia Werner MD [address] [place] [address] [email or web address] PCP - General Internal Medicine 06/19/22 09/01/24 Hamida Vickers CNP [address] [place] [address] PCP - General Nurse Practitioner 09/02/24 Char Guerrero CNM [address] [place] [address] Historical LMR Provider 03/15/17 2 Alessio Jeffery MD [address] [place] [phone] [email or web address] Historical LMR Provider 03/15/17 Imelda Barcenas NP [address] [place] [address] Historical LMR Provider 03/15/17 06/05/21 Yoanna Varela MD [address] [place] [address] [email or web address] Historical LMR Provider 03/15/17 Nahun Oliver MD [address] [place] [address] [email or web address] Historical LMR Provider 03/15/17 Yumiko Shearer MD [address] [place] [phone] [email or web address] Historical LMR Provider 03/15/17 Daisy Magaña MD [address] [place] [phone] Historical LMR Provider 03/15/17 2 documented as of this encounter Additional Source Comments The information contained in this document represents components of the legal health record. It is not the complete legal health record.[facility]
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
--- OUTSIDE RECORDS SUMMARY | 2025-05-26 11:43 | XMS_ITS | Encounter Summary ---
Author Organization [employer] Address [address] [facility] 7 [place] [address] Care Team Providers Care Program Management Intern Name Role Phone Rylie BusbySW Unavailable [phone] Hamida Vickers Primary Care Provider [phone] Antionette Khanna Unavailable Antionette hKanna Unavailable Reason for Visit * Reason Onset Date Comments Med Refill 12/21/2024 Encounter Details Date Type Department Care Team (Late st Contact Info) Description 12/21/2024 Refill [facility] [address] [place] [address] Hamida Vickers FNP [address] [place] [address] Social History Tobacco Use Types Packs/Day Years [...] on filedocumented in this encounter Care Teams Program Management Intern Relationship Specialty Start Date End Date Hamida Vickers FNP [address] [place] [address] PCP - General Family Medicine 09/27/23 Rylie Busby LICSW [address] [place] [address] Services Advisor Behavioral Health 05/05/22 Antionette Khanna 12/30/24 12/31/24 Antionette Khanna 04/04/25 documented as of this encounter
--- OUTSIDE RECORDS SUMMARY | 2025-05-26 11:43 | XMS_ITS | Encounter Summary ---
Author Organization [employer] Address [address] [facility] 7t [place] [address] Care Team Providers Care Printed Circuit Board Panels Trimmer Name Role Phone Rylie BusbySW Unavailable [phone] Hamida Vickers Primary Care Provider [phone] Antionette Khanna Unavailable Reason for Visit * Reason Onset Date Comments hospital discharge, obtain hospital records 04/29 Encounter Details Date Type Department Care Team (Late st Contact Info) Description 05/26/2025 Telephone [facility] MED[facility] [address] [place] [address] Hamida Vickers FNP [address] [place], [place] [phone] hospital discharge, obtain hospital records Social History Tobacco Use Types Packs/Day Years [...] encounter Miscellaneous Notes * Telephone Encounter - Michelle Boston LPN - 05/26/2025 11:29 AM EST LMOM to CB. Will ask Medical records to obtain UC records from [facility] * Telephone Encounter - Anya Hawley - 05/26/2025 10:18 AM EST Patient called stating she wasn't feeling good on 05/15/25 and she went to [facility] urgent care on 05/20/25 where she was diagnosed with Influenza A. Patient states urgent care told her to go to the ER if it gets worse. Patient sates she went to [place] [facility] today (05/26/25) due to difficulty breathing, heart racing, lightheadedness, shortness of breath, and hasn't vomited in 6 days. Patient states they did blood workand x-rays of her lungs. Patient states they told her she was severely dehydrated and tachycardic. P atient states they recommended she stay at the ER but the patient didn't want to sit in the waitingroom with the IV bag around all the other sick people. Patient states she thinks it's more than theflu and thinks something else is going on. Patient states she's down to 73 lbs (lost 17 lbs since 05/15/25). Patient began crying on phone call, provided emotional support and stated nursing will call her back to discuss further. TE sent to nursing TE sent to medical records to obtain hospital records documented in this encounter Plan of Treatment Not on file documented as of this encounter Visit Diagnoses Not on filedocumented in this encounter Care Teams Printed Circuit Board Panels Trimmer Relationship Specialty Start Date End Date Hamida Vickers FNP [address] [place] [address] PCP - General Family Medicine 09/27/23 Rylie Busby LICSW [address] [place] [address] Plastics Technician Behavioral Health 05/05/22 Antionette Khanna 04/04/25 documented as of this encounter
--- OUTSIDE RECORDS SUMMARY | 2025-05-26 11:43 | XMS_ITS | Encounter Summary ---
Author Organization [employer] Address [address] [facility] 7t [place] [address] Care Team Providers Care Child Life Assistant Name Role Phone Rylie Busby OMA Unavailable [phone] Hamida Vickers Primary Care Provider [phone] Antionette Khanna Unavailable Antionette Khanna Unavailable Encounter Details Date Type Department Care Team (Late st Contact Info) Description 12/20/2024 Orders Only [facility] Information Management [address] [place] [address] Hamida Vickers FNP [address] [place] [address] Social History Tobacco Use Types Packs/Day Years [...] Procedure Name Priority Date/Time Associated Diagnosis Comments XR SHOULDER 2 OR MORE VIEWS LEFT Routine 12/20/2024 3:08 PM EDT documented in this encounter Results * XR SHOULDER 2 OR MORE VIEWS LEFT (12/20/2024 3:08 PM EDT) Anatomical Region Laterality Modality Radiographic Estelle ging Hamida MARMOLEJO IMG XR PROCEDURES Final R esult documented in this encounter Visit Diagnoses Not on filedocumented in this encounter Care Teams Child Life Assistant Relationship Specialty Start Date End Date Hamida Vickers FNP [address] [place] [address] PCP - General Family Medicine 09/27/23 Rylie Busby LICSW [address] [place] [address] Resident Care Coordinator Behavioral Health 05/05/22 Antionette Khanna 12/30/24 12/31/24 Antionette Khanna 04/04/25 documented as of this encounter
== END 2025-05-26 10:48 | disposition home or self-care (01) ==
PROVIDERS: Physician Assistant Medical; Emergency Provider Emergency Medicine
DX: K52.9 Noninfective gastroenteritis and colitis, unspecified (principal); E86.0 Dehydration; R11.0 Nausea; R05.9 Cough, unspecified; R06.02 Shortness of breath; Z79.899 Other long term (current) drug therapy; F17.210 Nicotine dependence, cigarettes, uncomplicated
CPT/HCPCS: 36415; 71046; 80053; 82550; 83690; 83735; 85025; 85652; 86141; 96360; 99281; 99284

== ENCOUNTER → 2025-05-26 08:26 | Outpatient (BNV) | payer MEDICAID, SELFPAY | PROVIDERS: Emergency Provider Emergency Medicine; PCP Dentist General Practice; Visit Provider Radiology Diagnostic Radiology | DX: R05.9 Cough, unspecified (principal); R06.02 Shortness of breath | CPT/HCPCS: 71046 ==